=== PATIENT | male | born 1940 | race Caucasian/White ===

== ENCOUNTER → 2019-10-06 12:14 | Outpatient (CLI) | payer MEDICARE, OTHER, SELFPAY ==
--- NOTE | 2019-10-06 | DI.US.S_ITS ---
PROCEDURE: US PERIPH VENOUS LOW EXTREM BI INDICATIONS: LOCALIZED EDEMA TECHNIQUE: Real-time imaging, as well as color and pulse Doppler interrogation, were performed of the deep veins of both legs from the inguinal ligament to the popliteal fossa. COMPARISON: None. FINDINGS: Right: The common femoral, femoral and popliteal veins are normally compressible, and free of intraluminal thrombus. Color and pulse Doppler demonstrate normal phasic intravascular flow. There is normal augmentation response to distal compression maneuver. Left: The common femoral, femoral and popliteal veins are normally compressible, and free of intraluminal thrombus. Color and pulse Doppler demonstrate normal phasic intravascular flow. There is normal augmentation response to distal compression maneuver. Moderate edema. IMPRESSION: No deep venous thrombosis identified within either the left or right lower extremities. Dictated by: Cheikh PEREZ Interpreted: Buddy Rehman MD on 10/06/2019 at 13:38 Approved by: Buddy Rehman M.D. on 10/07/2019 at 12:06
== END ==
PROVIDERS: Family Provider Internal Medicine; PCP Internal Medicine; Referring Provider Internal Medicine; Visit Provider Internal Medicine
DX: R60.0 Localized edema (principal)
CPT/HCPCS: 93970

== ENCOUNTER → 2019-10-14 10:25 | Outpatient (CLI) | payer MEDICARE, OTHER, SELFPAY ==
[2019-10-14 11:46] LABS: Creatinine Urine Random 73.2 mg/dL; Protein (Total) Urine Random 8 mg/dL (0-12)
[2019-10-14 11:49] LABS: Alanine Aminotransferase 15 IU/L (<50); Albumin 3.3 g/dL (3.5-5.0); Albumin Globulin Ratio 1.5 (1.0-2.8); Alkaline Phosphatase 56 U/L (38-126); Aspartate Aminotransferase 23 IU/L (17-59); BUN Creatinine Ratio 17.9 (6-22); Bilirubin Total 0.4 mg/dL (0.2-1.3); Blood Urea Nitrogen 20 mg/dL (9-20); Carbon Dioxide 23 mmol/L (22-32); Chloride 102 mmol/L (98-107); Estimated Glomerular Filt Rate > 60.0 mL/min (>60); Globulin 2.2 g/dL (1.7-4.1); Glucose 103 mg/dL (80-110); HEMOLYSIS < 15 (0-50); Potassium 4.7 mmol/L (3.4-5.1); Sodium 131 mmol/L (137-145); Total Protein 5.5 g/dL (6.3-8.2)
[2019-10-14 11:55] LABS: Mean Corpuscular HGB Conc 28.1 % (30-36); Mean Corpuscular Hemoglobin 18.1 PG (26-34); Mean Corpuscular Volume 64.3 fL (80-100); Platelet Count 216 X10^3/uL (150-400); Red Blood Cell Count 2.26 X10^6/uL (4.5-5.9); White Blood Cell Count 5.7 X10^3/uL (4.5-11.0)
[2019-10-14 12:17] LABS: Add Manual Diff / Slide Review YES
[2019-10-14 12:20] LABS: Hematocrit 14.5 % (41-53); Hemoglobin 4.1 g/dL (13.5-17.5)
[2019-10-14 12:27] LABS: Neutrophils Absolute Manual 4446 /uL (3000-5900); Platelet Estimate Adequate on smear; Total Cells Counted 100
[2019-10-14 12:28] LABS: Anisocytosis 1+; Microcytosis 3+
[2019-10-14 12:29] LABS: Hypochromasia 3+; Poikilocytosis 2+
== END ==
PROVIDERS: Family Provider Internal Medicine; PCP Internal Medicine; Referring Provider Internal Medicine; Visit Provider Internal Medicine
DX: R60.0 Localized edema (principal)
CPT/HCPCS: 36415; 80053; 82570; 84156; 85025

== ENCOUNTER 2019-10-14 14:25 | Inpatient (IN) | payer MEDICARE, OTHER, SELFPAY ==
[2019-10-14] VITALS (11 sets, daily range): BP systolic 114–138; BP diastolic 48–64; PULSE 57–75; RESP 14–18; TEMP 36.2–37.6; O2SAT 95–100; BMI 21.1
--- NOTE | 2019-10-14 14:46 | PC.NURSE ---
Patient called by Dr Ventura for low HCT and HGB. Patient presents pale, reports some weakness and slight dizziness occasionally. Patient denies dark stools.
--- NOTE | 2019-10-14 15:14 | ED_ITS ---
HPI - Recheck/Abnormal Lab/Rx General Chief Complaint: Recheck/Abnormal Lab/Rx Stated Complaint: low hemoglobin/blood trans. Time Seen by Provider: 10/14/19 14:49 Source: patient and family Mode of arrival: Ambulatory Limitations: no limitations History of Present Illness HPI narrative: Patient here with son-in-law. Sent from Dr. Davis is office [facility], due to low hemoglobin. Patient has been feeling tired and fatigued for the past few days. Denies any black or bloody stools. No hematemesis or fluid loss. Is not on any blood thinners. Denies any chest pain. No palpitations no syncope. There is family history of colon cancer. Patient does not recall his last colonoscopy Related Data Allergies Allergy/AdvReac Type Severity Reaction Status Date / Time adhesive [ADHESIVE] Allergy Intermediate skin Unverified 06/25/17 11:54 redness, rash chocolate flavor AdvReac Intermediate mouth sores Unverified 06/25/17 11:54 [CHOCOLATE FLAVOR] Review of Systems Review of Systems Narrative: GENERAL: Denies chills, fever, sweats. Complains of weakness and fatigue HEENT: Denies sinus pain, ear pain, sore throat, difficulty swallowing, dizziness. RESPIRATORY: Denies dyspnea, cough, wheezing, hemoptysis, sputum. CARDIOVASCULAR: Denies chest pain, palpitations, orthopnea, edema, GASTROINTESTINAL: Denies nausea, vomiting, abdominal pain, diarrhea, constipation, melena. : Denies dysuria, frequency, incontinence, hematuria, urinary retention. MUSCULOSKELETAL: denies weakness, joint pain, or bony pain SKIN: Denies rash, skin lesions, or other NEUROLOGIC: Denies weakness, headache, numbness, change in speech, confusion, seizures, incoordination. PSYCHIATRIC: No concerning psychosocial issues. ROS Unobtainable: All systems reviewed & are unremarkable except as noted in HPI and below Patient History Social History household members: none Smoking Status: Never smoker Smoking Status: Never smoker alcohol intake frequency: 0-2 drinks per day Substance Use Type: does not use Exam Narrative Exam Narrative: GENERAL: patient appears stated age. Well-nourished, well- developed patient, in no distress, not toxic HEAD: Atraumatic. Normocephalic. EYES: Pupils equal round and reactive. Extraocular motions intact. No scleral ic terus. No injection or drainage. Pale conjunctiva ENT: Nose without bleeding, purulent drainage. Throat without erythema, tonsillar hypertrophy or exudate. Airway patent. NECK: Trachea midline. Non tender CARDIOVASCULAR: Regular rate and rhythm without murmurs, gallops, or rubs. RESPIRATORY: Clear to auscultation. Breath sounds equal bilaterally. No wheezes, rales, or rhonchi. GASTROINTESTINAL: Abdomen soft, non-tender, nondistended. Guaiac negative no black or bloody stool on glove EXTREMITIES: No edema or joint tenderness. BACK: Nontender without deformity or crepitance. No flank tenderness. NEURO: AOx3. SKIN: No rash or erythema of visible areas PSYCH: Not anxious, is cooperative Initial Vital Signs Initial Vital Signs: Vital Signs Temperature 99.7 F H 10/14/19 14:37 Pulse Rate 74 10/14/19 14:37 Respiratory Rate 18 10/14/19 14:37 Blood Pressure 128/58 L 10/14/19 14:37 Pulse Oximetry 100 10/14/19 14:37 Course Course Course Narrative: Will need admission for transfusion. Decision to Admit Date: 10/14/19 Decision to Admit time: 15:17 Orders Ordered: ED Orders 10/14/19 14:40 Complete Blood Count AUTO DIFF Stat Comprehensive Metabolic Panel Stat Packed Cells Stat Partial Thromboplastin Time Stat Prothrombin Time INR Stat Troponin & CK Cardiac Panel Stat Type and Screen Stat 10/14/19 15:11 EKG-12 Lead Stat Reevaluation(s) Reevaluation #1: No new issues at admit time Time: 15:17 Consultations Consultation #1: Spoke with hospitalist Dr. Corea will admit observation telemetry unit Time: 16:04 Consultation #2: Spoke with Dr. Nunez general surgery will see patient Time: 16:12 Vital Signs Vital signs: Vital Signs - 8 hr 10/14/19 14:37 10/14/19 15:09 Temperature 99.7 F H 99.1 F Pulse Rate 74 Respiratory Rate 18 Blood Pressure 128/58 L Pulse Oximetry 100 MDM - Recheck/Abnormal Lab/Rx Lab Data Result diagrams: 10/14/19 14:40 10/14/19 14:40 Labs: Lab Results 10/14/19 10/14/19 10/14/19 Range/Units 14:40 14:40 14:40 WBC 5.9 (4.5-11.0) X10^3/uL RBC 2.29 L (4.5-5.9) X10^6/uL Hgb 4.2 L* (13.5-17.5) g/dL Hct 14.7 L* (41-53) % MCV 64.3 L (80-100) fL MCH 18.5 L (26-34) PG MCHC 28.7 L (30-36) % RDW 18.9 H (11.6-14.8) % Plt Count 221 (150-400) X10^3/uL Neut % (Auto) 61.0 (50-75) % Lymph % (Auto) 28.7 (25-40) % [place] % (Auto) 7.0 (3-14) % Eos % (Auto) 2.5 (2-4) % Baso % (Auto) 0.8 (0-2) % Neut # (Auto) 3600 (1588-9335) /uL Lymph # (Auto) 1700 (3241-3540) /uL [place] # (Auto) 400 (0-900) /uL Eos # (Auto) 100 (0-450) /uL Baso # (Auto) 0 (0-100) /uL RBC Morphology See below Polychromasia 1+ H Hypochromasia 3+ H Microcytosis 3+ H PT 12.1 (10.1-12.7) SECONDS INR 1.0 (0.9-1.3) APTT 26 L (26.4-36.2) SECONDS Sodium (137-145) mmol/L Potassium (3.4-5.1) mmol/L Chloride (98-107) mmol/L Carbon Dioxide (22-32) mmol/L BUN (9-20) mg/dL Creatinine (0.66-1.25) mg/dL Estimated GFR (>60) mL/min BUN/Creatinine Ratio (6-22) Glucose (80-110) mg/dL Calcium (8.4-10.2) mg/dL Total Bilirubin (0.2-1.3) mg/dL AST (17-59) IU/L ALT (<50) IU/L Alkaline Phosphatase (38-126) U/L Total Creatine Kinase (55-170) U/L CK-MB (CK-2) (<2.37) ng/mL CK-MB (CK-2) Rel Index (1.5-5.0) % Troponin I (0.01-0.034) ng/mL Total Protein (6.3-8.2) g/dL Albumin (3.5-5.0) g/dL Globulin (1.7-4.1) g/dL Albumin/Globulin Ratio (1.0-2.8) COVID-19 PCR (Negative) Blood Type A Positive Antibody Screen Negative Crossmatch See Detail 10/14/19 10/14/19 Range/Units 14:40 15:16 WBC (4.5-11.0) X10^3/uL RBC (4.5-5.9) X10^6/uL Hgb (13.5-17.5) g/dL Hct (41-53) % MCV (80-100) fL MCH (26-34) PG MCHC (30-36) % RDW (11.6-14.8) % Plt Count (150-400) X10^3/uL Neut % (Auto) (50-75) % Lymph % (Auto) (25-40) % [place] % (Auto) (3-14) % Eos % (Auto) (2-4) % Baso % (Auto) (0-2) % Neut # (Auto) (3462-1094) /uL Lymph # (Auto) (6020-0247) /uL [place] # (Auto) (0-900) /uL Eos # (Auto) (0-450) /uL Baso # (Auto) (0-100) /uL RBC Morphology Polychromasia Hypochromasia Microcytosis PT (10.1-12.7) SECONDS INR (0.9-1.3) APTT (26.4-36.2) SECONDS Sodium 132 L (137-145) mmol/L Potassium 4.5 (3.4-5.1) mmol/L Chloride 102 (98-107) mmol/L Carbon Dioxide 24 (22-32) mmol/L BUN 22 H (9-20) mg/dL Creatinine 1.21 (0.66-1.25) mg/dL Estimated GFR 57.7 L (>60) mL/min BUN/Creatinine Ratio 18.2 (6-22) Glucose 119 H (80-110) mg/dL Calcium 8.8 (8.4-10.2) mg/dL Total Bilirubin 0.4 (0.2-1.3) mg/dL AST 25 (17-59) IU/L ALT 16 (<50) IU/L Alkaline Phosphatase 54 (38-126) U/L Total Creatine Kinase 198 H (55-170) U/L CK-MB (CK-2) 3.32 H (<2.37) ng/mL CK-MB (CK-2) Rel Index 1.7 (1.5-5.0) % Troponin I < 0.012 (0.01-0.034) ng/mL Total Protein 5.8 L (6.3-8.2) g/dL Albumin 3.6 (3.5-5.0) g/dL Globulin 2.2 (1.7-4.1) g/dL Albumin/Globulin Ratio 1.6 (1.0-2.8) COVID-19 PCR Negative (Negative) Blood Type Antibody Screen Crossmatch ECG Data Attestation: I personally reviewed and interpreted this ECG as follows: Interpretation: EKG normal sinus rhythm normal EKG rate [address] elevation or depression Discharge Plan Departure Patient Disposition: Admitted as Observation Clinical Impression: Anemia Qualifiers: Anemia type: other cause Other causes of anemia: other cause, not classified Qualified Code(s): D64.89 - Other specified anemias Discharge Date/Time: 10/14/19 16:24 Referrals: Aj Davis MD [Primary Care Provider] - Admit Date/Time: 10/14/19 16:05 Admit Provider: Rosalind Fraser
[2019-10-14 15:21] LABS: HEMOLYSIS < 15 (0-50)
[2019-10-14 15:23] LABS: Prothrombin Time 12.1 SECONDS (10.1-12.7)
[2019-10-14 15:25] LABS: PTT Partial Thromboplastin Tim 26 SECONDS (26.4-36.2)
[2019-10-14 15:26] LABS: Alanine Aminotransferase 16 IU/L (<50); Albumin 3.6 g/dL (3.5-5.0); Albumin Globulin Ratio 1.6 (1.0-2.8); Alkaline Phosphatase 54 U/L (38-126); Aspartate Aminotransferase 25 IU/L (17-59); BUN Creatinine Ratio 18.2 (6-22); Bilirubin Total 0.4 mg/dL (0.2-1.3); Blood Urea Nitrogen 22 mg/dL (9-20); Calcium 8.8 mg/dL (8.4-10.2); Carbon Dioxide 24 mmol/L (22-32); Chloride 102 mmol/L (98-107); Creatine Kinase 198 U/L (55-170); Estimated Glomerular Filt Rate 57.7 mL/min (>60); Globulin 2.2 g/dL (1.7-4.1); Glucose 119 mg/dL (80-110); Potassium 4.5 mmol/L (3.4-5.1); Sodium 132 mmol/L (137-145); Total Protein 5.8 g/dL (6.3-8.2)
[2019-10-14 15:33] LABS: Add Manual Diff / Slide Review NO; Basophils Absolute Auto 0 /uL (0-100); Basophils Percent Auto 0.8 % (0-2); Eosinophils Absolute Auto 100 /uL (0-450); Eosinophils Percent Auto 2.5 % (2-4); Lymphocytes Absolute Auto 1700 /uL (1100-4500); Lymphocytes Percent Auto 28.7 % (25-40); Mean Corpuscular HGB Conc 28.7 % (30-36); Mean Corpuscular Hemoglobin 18.5 PG (26-34); Mean Corpuscular Volume 64.3 fL (80-100); Monocytes Absolute Auto 400 /uL (0-900); Neutrophils Absolute Auto 3600 /uL (1500-7000); Platelet Count 221 X10^3/uL (150-400); Red Blood Cell Count 2.29 X10^6/uL (4.5-5.9); Red Cell Distribution Width 18.9 % (11.6-14.8); White Blood Cell Count 5.9 X10^3/uL (4.5-11.0)
[2019-10-14 15:37] LABS: Hematocrit 14.7 % (41-53); Hemoglobin 4.2 g/dL (13.5-17.5)
[2019-10-14 15:51] LABS: CKMB % Relative Index 1.7 % (1.5-5.0); Creatine Kinase MB 3.32 ng/mL (<2.37); Troponin I < 0.012 ng/mL (0.01-0.034)
[2019-10-14 16:01] LABS: Polychromasia 1+
[2019-10-14 16:02] LABS: Hypochromasia 3+; Microcytosis 3+
[2019-10-14 16:30] LABS: COVID19 -Nasal RAPID Negative (Negative)
--- NOTE | 2019-10-14 19:26 | PM.CN ---
History of Present Illness Consult details Date Patient Seen: 10/14/19 Time Patient Seen: 19:26 Chief complaint: low hemoglobin/blood trans. Narrative: This 79-year-old male seen in consultation for symptomatic anemia. Over the past week the patient has become increasingly fatigued and short of breath. He presented to the emergency room today was found to have microcytic anemia, hemoglobin of 4.2, WBC 6, platelets 221, INR 1.0. No history of anemia or malignancy. He takes aspirin and daily but denies abdominal pain hematemesis melanotic stools bright red blood per rectum. He he notes unintentional weight loss over the past several months. Last colonoscopy was approximately 10 years ago and normal at that time. No personal or family history of intestinal malignancy. No significant past medical or surgical history. Meds Home Medications and Allergies Allergies Allergy/AdvReac Type Severity Reaction Status Date / Time adhesive [ADHESIVE] Allergy Intermediate skin Unverified 06/25/17 11:54 redness, rash chocolate flavor AdvReac Intermediate mouth sores Unverified 06/25/17 11:54 [CHOCOLATE FLAVOR] Review of Systems Review of Systems Narrative: A 10 point review of systems is negative except as noted in the HPI Exam Vital Signs (past 8 hours): - 10/14/19 14:37 10/14/19 15:09 10/14/19 17:10 Temperature 99.7 F H 99.1 F 98.0 F Pulse Rate 74 64 Respiratory Rate 18 18 Blood Pressure 128/58 L 114/49 L Pulse Oximetry 100 10/14/19 17:26 10/14/19 17:42 Temperature 98.1 F 98.0 F Pulse Rate 57 L 66 Respiratory Rate 16 18 Blood Pressure 119/53 L 114/49 L Pulse Oximetry 100 Oxygen Delivery Method Room Air Narrative Exam Narrative: General-no acute distress, thin elderly male HEENT-moist mucous membranes, no scleral icterus Neck-supple, no lymphadenopathy Chest- non labored respirations, clear to auscultation bilaterally Cardiac-regular rate no peripheral edema Abdomen-soft, nontender, non distended Extremities-warm, well perfused Neurological-alert and oriented, no focal deficits Objective Labs Result Diagrams: 10/14/19 14:40 10/14/19 14:40 Labs: Laboratory Results - last 24 hr 10/14/19 10/14/19 10/14/19 14:40 14:40 14:40 WBC 5.9 RBC 2.29 L Hgb 4.2 L* Hct 14.7 L* MCV 64.3 L MCH 18.5 L MCHC 28.7 L RDW 18.9 H Plt Count 221 Neut % (Auto) 61.0 Lymph % (Auto) 28.7 [place] % (Auto) 7.0 Eos % (Auto) 2.5 Baso % (Auto) 0.8 Neut # (Auto) 3600 Lymph # (Auto) 1700 [place] # (Auto) 400 Eos # (Auto) 100 Baso # (Auto) 0 RBC Morphology See below Polychromasia 1+ H Hypochromasia 3+ H Microcytosis 3+ H PT 12.1 INR 1.0 APTT 26 L Sodium Potassium Chloride Carbon Dioxide BUN Creatinine Estimated GFR BUN/Creatinine Ratio Glucose Calcium Total Bilirubin AST ALT Alkaline Phosphatase Total Creatine Kinase CK-MB (CK-2) CK-MB (CK-2) Rel Index Troponin I Total Protein Albumin Globulin Albumin/Globulin Ratio COVID-19 PCR Blood Type A Positive Antibody Screen Negative Crossmatch See Detail 10/14/19 10/14/19 14:40 15:16 WBC RBC Hgb Hct MCV MCH MCHC RDW Plt Count Neut % (Auto) Lymph % (Auto) [place] % (Auto) Eos % (Auto) Baso % (Auto) Neut # (Auto) Lymph # (Auto) [place] # (Auto) Eos # (Auto) Baso # (Auto) RBC Morphology Polychromasia Hypochromasia Microcytosis PT INR APTT Sodium 132 L Potassium 4.5 Chloride 102 Carbon Dioxide 24 BUN 22 H Creatinine 1.21 Estimated GFR 57.7 L BUN/Creatinine Ratio 18.2 Glucose 119 H Calcium 8.8 Total Bilirubin 0.4 AST 25 ALT 16 Alkaline Phosphatase 54 Total Creatine Kinase 198 H CK-MB (CK-2) 3.32 H CK-MB (CK-2) Rel Index 1.7 Troponin I < 0.012 Total Protein 5.8 L Albumin 3.6 Globulin 2.2 Albumin/Globulin Ratio 1.6 COVID-19 PCR Negative Blood Type Antibody Screen Crossmatch Assessment & Plan Assessment and plan (1) Anemia: Qualifiers: Anemia type: other cause Other causes of anemia: other cause, not classified Qualified Code(s): D64.89 - Other specified anemias Status: Acute Assessment & Plan narrative: 79-year-old male admitted to the medical service with symptomatic microcytic anemia, initial hemoglobin 4.2. He takes aspirin daily has some unintentional weight loss. He is currently receiving blood transfusion. It is reasonable to perform an esophagoduodenoscopy for diagnostic purpose see may have peptic ulcer, gastritis/esophagitis or malignancy and he may require a future colonoscopy as well. I discussed this with the patient and we discussed the procedural risks of EGD including bleeding infection intestinal perforation missed diagnosis need for further procedure. His his questions have been answered to his agreement with this plan -NPO after midnight -plan for EGD 10/14
--- NOTE | 2019-10-14 20:37 | P.HP_ITS ---
History of Present Illness <Rosalind Fraser DO - Last Filed: 10/15/19 14:38> History of Present Illness Date Patient Seen: 10/14/19 Chief complaint: low hemoglobin/blood trans. Narrative: Lalit Wright is an 79-year-old male with a past medical history significant for hypertension, hyperlipidemia, and colon polyps who presented to the ED at the instruction of his PCP for severe and mildly symptomatic anemia. The patient is a very poor historian and likely has mild cognitive impairment versus mild dementia. The patient reports that he has had increasing fatigue and weakness likely over the last several weeks but especially over the last several days. The patient was found to be severely anemic with a hemoglobin of 4.1 in PCP outpatient clinic and he was instructed to go to the emergency department. He has no history of anemia as far as he knows with the last documented hemoglobin and hematocrit was 15.7 and 47.5, respectively in 2014. He takes a baby aspirin daily. He denies any other NSAID use. He denies hemoptysis, hematuria, hematochezia or melena. Stool guaiac negative in ED. He denies any shortness of breath, lightheadedness or dizziness, presyncope or syncopal episodes, palpitations or chest pain. The patient has a history of colon polyps and reports that he is likely overdue for colonoscopy but was not going to obtain due to his age and previous discussion with PCP. He has a family history of a mother that of metastatic colon cancer. Patient endorses unintentional weight loss of unknown amount but has noticed his clothes do not fit well and he has changed stool pattern with intermittent small caliber of stool. He denies night sweats or abdominal pain. Plan for observation and workup of anemia which is likely related to GI source. PCP Dr. Davis Patient History <Rosalind Fraser DO - Last Filed: 10/15/19 14:38> Medical History Colon polyps (Acute) Hydrocele, left (Acute) Hyperlipidemia (Acute) Hypertension (Acute) Lumbar radiculopathy (Acute) Surgical History H/O colonoscopy (Acute) History of cholecystectomy (Acute) History of lumbar fusion (Acute) History of tonsillectomy (Acute) S/P repair of hydrocele (Acute) Family & Social History Family History (Updated 10/14/19 @ 23:45 by Rosalind Fraser DO) Mother Metastatic colon cancer to liver Father Alcoholism Social History: household members none Prior Living Arrangements House Safety & Behavioral: Feels Safe in Current Yes Environment Been Physically Hurt or No Threatened By a Person Suicidal Ideation Description None Suicide Plan Description No Plan Tobacco & Substance use: Smoking Status Never smoker alcohol intake frequency None Substance Use Type Does not use The patient is for 14 years now and was for 41 years. He has 1 adult daughter who is healthy. He denies history of alcohol, tobacco or recreational drug use. Meds <Rosalind Fraser DO - Last Filed: 10/15/19 14:38> Home Medications and Allergies Home Medications Medication Instructions Recorded Confirmed Type aspirin 81 mg PO DAILY 10/14/19 10/14/19 History lisinopril 5 mg PO DAILY 10/14/19 10/14/19 History simvastatin 20 mg PO BEDTIME 10/14/19 10/14/19 History oxycodone 5 mg PO DAILY PRN 10/15/19 10/15/19 History Allergies Allergy/AdvReac Type Severity Reaction Status Date / Time adhesive [ADHESIVE] Allergy Intermediate skin Verified 10/15/19 09:23 redness, rash chocolate flavor AdvReac Intermediate mouth sores Verified 10/15/19 09:23 [CHOCOLATE FLAVOR] Review of Systems <Rosalind Fraser DO - Last Filed: 10/15/19 14:38> Review of Systems Narrative: A 10 system comprehensive review of systems was conducted with the patient and found to be negative except as above in the History of Present Illness. Exam <Rosalind Fraser DO - Last Filed: 10/15/19 14:38> Vital Signs (past 8 hours): - 10/14/19 14:37 10/14/19 15:09 10/14/19 17:10 Temperature 99.7 F H 99.1 F 98.0 F Pulse Rate 74 64 Respiratory Rate 18 18 Blood Pressure 128/58 L 114/49 L Pulse Oximetry 100 10/14/19 17:26 10/14/19 17:42 10/14/19 20:05 Temperature 98.1 F 98.0 F 98.4 F Pulse Rate 57 L 66 75 Respiratory Rate 16 18 18 Blood Pressure 119/53 L 114/49 L 138/64 Pulse Oximetry 100 Oxygen Delivery Method Room Air Narrative Exam Narrative: General: Elderly thin and frail-appearing male lying in bed and in no acute distress, well-developed, well-nourished, mild cognitive impairment otherwise appropriately interactive. HEENT: Normocephalic, atraumatic. External ears without defect. Pupils equal, round, and reactive to light. Anicteric sclerae, moist conjunctivae, and no lid lag. Oropharynx free of erythema and cobble stoning with moist mucosa. Bitemporal and full body muscle wasting. Neck: Supple with full range of motion. No jugular venous distension. No lymphadenopathy or thyromegaly. Cardiovascular: Regular rate and rhythm without murmurs, rubs, or gallops appreciated. Pulmonary: Clear to auscultation bilaterally without crackles, wheezes, or rhonchi. Normal respiratory effort with no use of accessory muscles. Abdomen: Soft, scaphoid, bowel sounds present, nontender, nondistended. No hepatosplenomegaly or masses appreciated. Extremities: No clubbing, cyanosis, or edema. Stasis dermatitis of bilateral lower extremities. Skin: Normal temperature, turgor, and texture; no ulcers, or subcutaneous nodul es appreciated. Neurological: Cranial nerves grossly intact. Psychiatric: Normal mood and affect. Alert and oriented to person and place. Poor insight. Mild cognitive impairment versus mild dementia with short-term memory recall deficit. Objective <Rosalind Adamaris Bria, DO - Last Filed: 10/15/19 14:38> Labs Result Diagrams: 10/15/19 05:40 10/15/19 05:40 Labs: Laboratory Results - last 24 hr 10/14/19 10/14/19 10/14/19 14:40 14:40 14:40 WBC 5.9 RBC 2.29 L Hgb 4.2 L* Hct 14.7 L* MCV 64.3 L MCH 18.5 L MCHC 28.7 L RDW 18.9 H Plt Count 221 Neut % (Auto) 61.0 Lymph % (Auto) 28.7 [place] % (Auto) 7.0 Eos % (Auto) 2.5 Baso % (Auto) 0.8 Neut # (Auto) 3600 Lymph # (Auto) 1700 [place] # (Auto) 400 Eos # (Auto) 100 Baso # (Auto) 0 RBC Morphology See below Polychromasia 1+ H Hypochromasia 3+ H Microcytosis 3+ H PT 12.1 INR 1.0 APTT 26 L Sodium Potassium Chloride Carbon Dioxide BUN Creatinine Estimated GFR BUN/Creatinine Ratio Glucose Calcium Total Bilirubin AST ALT Alkaline Phosphatase Total Creatine Kinase CK-MB (CK-2) CK-MB (CK-2) Rel Index Troponin I Total Protein Albumin Globulin Albumin/Globulin Ratio COVID-19 PCR Blood Type A Positive Antibody Screen Negative Crossmatch See Detail 10/14/19 10/14/19 14:40 15:16 WBC RBC Hgb Hct MCV MCH MCHC RDW Plt Count Neut % (Auto) Lymph % (Auto) [place] % (Auto) Eos % (Auto) Baso % (Auto) Neut # (Auto) Lymph # (Auto) [place] # (Auto) Eos # (Auto) Baso # (Auto) RBC Morphology Polychromasia Hypochromasia Microcytosis PT INR APTT Sodium 132 L Potassium 4.5 Chloride 102 Carbon Dioxide 24 BUN 22 H Creatinine 1.21 Estimated GFR 57.7 L BUN/Creatinine Ratio 18.2 Glucose 119 H Calcium 8.8 Total Bilirubin 0.4 AST 25 ALT 16 Alkaline Phosphatase 54 Total Creatine Kinase 198 H CK-MB (CK-2) 3.32 H CK-MB (CK-2) Rel Index 1.7 Troponin I < 0.012 Total Protein 5.8 L Albumin 3.6 Globulin 2.2 Albumin/Globulin Ratio 1.6 COVID-19 PCR Negative Blood Type Antibody Screen Crossmatch Assessment & Plan <Rosalind Fraser DO - Last Filed: 10/15/19 14:38> Assessment & Plan narrative: Lalit Wright is an 79-year-old male with a past medical history significant for hypertension, hyperlipidemia, and colon polyps who presented to the ED at the instruction of his PCP for severe and mildly symptomatic anemia. 1. Symptomatic anemia likely secondary to GI source, unclear acuity, present on admission. Active. -Patient presented with mild fatigue and weakness over several weeks but especially over last 3 days. Patient endorses change in stool pattern with intermittent small caliber stools. Patient has history of colon polyps and is overdue for colonoscopy. Significant family history of mother who had metastatic colon cancer. -Initial hemoglobin 4.1 with MCV 64.3. Received 2 units PRBC. Plan to check another H&H and transfuse likely 1-2 units of PRBC for goal hemoglobin > 7.0. -Stool guaiac negative in ED. -Ordered anemia workup including: Iron profile with saturation, ferritin, reticulocyte count, B12 and folate, pending. -Started Protonix 40 mg IV twice daily. -Consulted general surgery, Dr. Nunez, who plans to perform EGD tomorrow and probable colonoscopy in the next several days after bowel prep has been performed. NPO midnight. 2. Unintentional weight loss with likely protein calorie malnutrition, likely acute on chronic, present on admission. Active. -BMI 20.7. -Consulted dietitian and we appreciate her time and recommendations, pending. 3. Hypertension, chronic, present on admission. Stable. -Continue home lisinopril 5 mg daily if BP allows. 4. Hyperlipidemia, chronic, present on admission. Stable. -Continue home simvastatin 20 mg daily at bedtime. Code status: Full code VTE prophylaxis: SCDs Patient is admitted under observation status with expected length of stay less than 2 midnights due to severity of presenting symptoms, risk of adverse event, and complexity of treatment plan. Quality <Rosalind Fraser DO - Last Filed: 10/15/19 14:38> VTE Deep Vein Thrombosis/Pulmonary Embolism Present on Admission: No
[2019-10-14 21:08] LABS: Hematocrit 18.8 % (41-53)
[2019-10-14 21:10] LABS: Hemoglobin 5.5 g/dL (13.5-17.5)
[2019-10-14] MEDS: PANTOPRAZOLE 40 MG TABLET PO (21:43)
--- NOTE | 2019-10-14 22:49 | PC.NURSE ---
Admit/Evening Shift Note- Patient arrived to room from ER via stretche. Patiet able to ambulate with cane from stretcher to bed to bathroom and back with steady gait noted.admission questions done, medications reviewed, physical assessment and skin check done. Oriented patient to bed and bed controls,room,bathroom, lights,phone, menu, and call paez/tv remote. Patient forgetfull and will need reminding. safety measures in place.bed alarm activated. call paez and phone within reach. will continue to monitor.
[2019-10-15] VITALS (26 sets, daily range): BP systolic 82–111; BP diastolic 34–51; PULSE 42–61; RESP 12–27; TEMP 36.1–37.3; O2SAT 96–100; BMI 20.3
--- NOTE | 2019-10-15 | PATH_ITS ---
[facility] Accession Number: [id number] . 01 Material submitted: . PART A: duodenum - DUODENUM PART B: stomach - STOMACH PART C: gastrointestinal site - GASTRIC POLYP PART D: body - FLAT POLYP PART E: esophagus - DISTAL ESOPHAGUS . 01 Clinical history: . LOW HEMOGLOBIN/BLOOD TRANS . 02 Diagnosis: A. Duodenum, Biopsy: Duodenal mucosa with gastric surface foveolar metaplasia. Negative for intraepithelial lymphocytosis or villous blunting. Negative for dysplasia and malignancy. . B. Stomach, Biopsy: Antral mucosa with no diagnostic abnormality. Negative for Helicobacter by immunohistochemistry. Negative for intestinal metaplasia. Negative for dysplasia and malignancy. . C. Stomach, Polyp, Biopsy: Fundic gland polyp. No evidence of Helicobacter on H/E stain. Negative for intestinal metaplasia. Negative for dysplasia and malignancy. . D. Flat Polyp, Biopsy: Favor gastric hyperplastic polyp. Negative for intestinal metaplasia by alcian blue stain. Negative for dysplasia and malignancy. . E. Distal Esophagus, Biopsy: Squamocolumnar junctional mucosa with mild chronic inflammation. Negative for intestinal metaplasia by alcian blue stain. Negative for dysplasia and malignancy. [facility] 10/19/2019 1414 Local . 02 Electronically signed: . Rachna Ybarra MD, Pathologist NPI- [id number] . 01 Gross description: . Part A: DUODENUM: Received in formalin are 2 fragment(s) of roche, soft tissue measuring 0.4 x 0.2 x 0.1 cm to 0.3 x 0.2 x 0.1 cm submitted entirely in 1 cassette(s) Part B: STOMACH: Received in formalin is 1 fragment(s) of roche, soft tissue measuring 0.4 x 0.3 x 0.2 cm submitted entirely in 1 cassette(s) Part C: GASTRIC POLYP: Received in formalin are 2 fragment(s) of roche, soft tissue measuring 0.6 x 0.3 x 0.3 cm to 0.3 x 0.3 x 0.1 cm submitted entirely in 1 cassette(s) Part D: FLAT POLYP: Received in formalin are 2 fragment(s) of roche, soft tissue measuring 0.4 x 0.4 x 0.1 cm to 0.3 x 0.2 x 0.1 cm submitted entirely in 1 cassette(s) Part E: DISTAL ESOPHAGUS: Received in formalin are 2 fragment(s) of roche, soft tissue measuring 0.4 x 0.2 x 0.1 cm to 0.3 x 0.1 x 0.1 cm submitted entirely in 1 cassette(s) /Q 10/16/2019 0834 Local . 02 Microscopic: . B. An immunohistochemical stain was performed to evaluate for Helicobacter organisms and is negative. The control stain showed appropriate reactivity. . D-E: Alcian blue stains were performed on blocks D and E in order to evaluate for intestinal metaplasia and are both negative. The control stain showed appropriate reactivity. . * This test was developed and its performance characteristics determined by [employer]. It has not been cleared or approved by the U.S. Food and Drug Administration. The FDA has determined that such clearance or approval is not necessary. This test is used for clinical purposes. It should not be regarded as investigational or for research. . 02 Pathologist provided ICD-10: D50.9 . 02 CPT . 410557, 685941, 204649, 852954, 968089, 116828, 837946, K38091 Performed at: 01 [facility] [address], [place], [place] [id number] MD Heri Curry MD Phone: [phone] Performed at: 02 [facility] [address] [place], [place] [id number] MD Rachna Ybarra MD Phone: [phone]
--- NOTE | 2019-10-15 01:52 | TAR.TRANSNT ---
Transfusion [id number] [facility] 2340 10/14/19. Post transfusion VS.
--- NOTE | 2019-10-15 03:54 | PC.NURSE ---
Completion of verification of [facility] # [id number] completed in TAR with Christiane Price RN. This unit initiated on previous shift @2110 by Sil Parsons RN and completed by Christiane Price RN at 2340.
[2019-10-15 06:05] LABS: Hemoglobin 7.4 g/dL (13.5-17.5); Mean Corpuscular HGB Conc 31.3 % (30-36); Mean Corpuscular Hemoglobin 22.7 PG (26-34); Mean Corpuscular Volume 72.6 fL (80-100); Platelet Count 161 X10^3/uL (150-400); Red Blood Cell Count 3.26 X10^6/uL (4.5-5.9); Red Cell Distribution Width 25.6 % (11.6-14.8); White Blood Cell Count 6.5 X10^3/uL (4.5-11.0)
[2019-10-15 06:08] LABS: Add Manual Diff / Slide Review YES; Hematocrit 23.6 % (41-53)
[2019-10-15 06:11] LABS: BUN Creatinine Ratio 17.1 (6-22); Blood Urea Nitrogen 18 mg/dL (9-20); Calcium 8.7 mg/dL (8.4-10.2); Carbon Dioxide 22 mmol/L (22-32); Chloride 106 mmol/L (98-107); Estimated Glomerular Filt Rate > 60.0 mL/min (>60); Glucose 75 mg/dL (80-110); HEMOLYSIS < 15 (0-50); Magnesium 2.1 mg/dL (1.6-2.3); Potassium 4.1 mmol/L (3.4-5.1); Sodium 133 mmol/L (137-145)
[2019-10-15 07:19] LABS: Neutrophils Absolute Manual 5200 /uL (3000-5900); Nucleated Red Blood Cells 1 #/Diff; Total Cells Counted 100
[2019-10-15 07:20] LABS: Anisocytosis 2+; Hypochromasia 2+; Poikilocytosis 1+; Target Cells 1+
[2019-10-15] MEDS: PANTOPRAZOLE 40 MG VIAL IV ×2 (08:01→21:11)
[2019-10-15] MEDS: SODIUM CHLORIDE 0.9% FLUSH 10 ML IV ×3 (08:01→11:02)
--- NOTE | 2019-10-15 08:28 | PC.NURSE ---
Day Shift- Pt NPO for EGD procedure today. Dr. Nunez in pt's room, consent obtained for EGD. Requested IVF if pt NPO. New order to start NS @ 75mls/hr. Dr. 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 Spoke with Dr. Fraser at 0835, aware of above. Lab Glucose 75, check finger stick blood glucose X1, start D5NS @ 75mls/hr. Dr. Fraser aware of pt's c/o restless legs and chronic low back pain, pt states he takes Oxycodone at home. No other PRN orders at this time.
[2019-10-15] MEDS: DEXTROSE 5%-0.9% NS 1,000 ML 75 ML IV (08:45)
[2019-10-15 08:54] LABS: HEMOLYSIS < 15 (0-50); Iron 186 ug/dL (49-181)
[2019-10-15 09:04] LABS: Percent Iron Saturation 49 % (20-50); Total Iron Binding Capacity 378 ug/dL (261-462); Transferrin 277 mg/dL (206-381)
[2019-10-15] MEDS: SODIUM CHLORIDE 0.9% 1,000 ML 200 ML IV (09:23)
--- NOTE | 2019-10-15 09:44 | PM.PREOP ---
Pre-operative Note COVID-19 COVID-19 status: Negative Result date/Date tested (Pos, Neg/Pending): 10/14/19 Interval Note History & Physical reviewed/Exam performed by Physician: Yes Changes to H&P: No ASA Class (for procedural sedation): IV (Anemia of unknown cause, with present hemoglobin of 4)
--- NOTE | 2019-10-15 09:46 | P.OP.ENDO_ITS ---
Operative Date/Time/Diagnoses Date of procedure: 10/15/19 Time of procedure: 09:46 Pre-op diagnosis: Anemia of unknown cause, with presenting hgb of 4 and c/o abdominal pain Post-op diagnosis: other (Duodenal petechia, consistent with duodenitis, gastric petechia consistent with gastritis, raised and flat polyps in the stomach, with no active bleeding, 1-2 cm tongues of salmon-colored mucosa consistent with Yung's esophagus in the distal esophagus) Procedure & Clinicians Study performed: Esophagogastroduodenoscopy Procedural sedation by the endoscopy Snare polypectomy x2 Cold forceps biopsy of duodenum, stomach mucosa, flap gastric polyps, and distal esophagus Same procedure as scheduled: Yes Indications: 79 yo man with no significant medical or surgical history, presenting to the ER with hgb of 4 of unknown cause and abdominal pain. EGD was recommended by the hospitalist. He has been transfused up to 7.4 over night. Surgeon: Loren Rico Procedure Notes SCOAP/Timeout: Performed Procedure in detail: The patient was brought to the room and placed in left lateral decubitus position with all bony prominences padded. A bite block was positioned in the patient's mouth to protect the lips, teeth, and tongue for the procedure. A time-out was performed and then the patient was given procedural sedation starting with 1 mg of Versed and 50 mcg of fentanyl. Vitals were monitored throughout the procedure and remained stable. Once adequately sedated, the procedure was begun. The lubricated gastroscope was passed through the bite block and across the tongue and into the esophagus without incident. A tubular view of the esophagus was maintained as the scope was advanced through the esophagus and into the stomach. The scope was advanced through the stomach and to the pylorus. The scope was gently popped through the pylorus and into the duodenal bulb. The scope was flexed and advanced into the second and third portions of the duodenum. The duodenum and duodenal bulb appeared to contain so me mild to moderate duodenitis with petechia present, this was biopsies. The scope was withdrawn into the stomach. The stomach appeared to have some mild gastritis, with petechia present, this was biopsied. There were many raised and flap polyps in the gastric body. These were biopsied and sent separately for pathology. The raised polyps were removed with cold snare, and the flap polyps were biopsied with cold forceps. All the polyps were 1/2 to 1 cm in size. The scope was then retroflexed and the gastric cardia was examined. The hiatus [appeared normal], with no hiatal hernia. The scope was then straightened, and withdrawn into the esophagus. There were 1-2 cm tongues of salmon-colored mucosa coming up into the distal esophagus. Was no sign of bleeding here, but this was biopsied. The esophagus appeared otherwise normal. The scope was then withdrawn through the esophagus with a tubular view. The scope was then withdrawn from the patient the procedure was concluded. The patient tolerated the procedure well and was transferred to the PACU in stable condition. Sedation minutes: 17 Findings: other findings (Duodenal petechia, consistent with duodenitis, gastric petechia consistent with gastritis, raised and flat polyps in the stomach, with no active bleeding, 1-2 cm tongues of salmon-colored mucosa consistent with Yung's esophagus in the distal esophagus) Specimen(s): other (Biopsies of duodenal and gastric mucosa, gastric polyps flat and raised, distal esophagus) Complications: none Impression: Potential source of anemia is most likely the duodenitis and duodenal petechia Post-procedure Plan for aftercare: Continue PPI, follow hemoglobin, consider colonoscopy and evaluation of other sources if anemia persists Follow up: as needed Disposition: PACU
[2019-10-15] MEDS: fentaNYL 250 MCG/5 ML INJ IV (10:32)
[2019-10-15] MEDS: MIDAZOLAM 5 MG/5 ML VIAL IV (10:32)
[2019-10-15] MEDS: LIDOCAINE 4% SOLN 50 ML 20 ML TOP (10:35)
--- NOTE | 2019-10-15 10:50 | SUR.PHASEI ---
Report called to Hellen
--- NOTE | 2019-10-15 11:09 | SUR.PHASEI ---
Patient transferred to the floor. VS stable. Report given to Hellen. IV saline locked.
--- NOTE | 2019-10-15 11:09 | PC.NURSE ---
Addendum entered by Hellen Hanna R.N. 10/15/19 12:15: pt tolerating clearl liquids without issue. Has had water and chicken broth. Pt wants to have a cheeseburger, reminded and educated pt on clear liquid diet ordered at this time and to intake slowly to prevent GI upset. Pt agreeable but is forgetful. Pt stated falling asleep with the chicken broth in my hand. Fluid was luke-warm, no skin issue to abd or chest where broth was spilled, gown changed. Original Note: Shift- Pt left for EGD via bed at 0901. Pt's personal belongings of wallet with bernabe and blank checks, golod colored ramin and gold colored ring, and care acevedo set sent to unit safe while pt in procedure. Pt aware and signed appropriate forms. Report rec'd from CYNTHIA Ruano in PACU at 1049. Pt arrived back to unit room 207 at via bed. Re-oriented to call light, within reach. Pt states feeling hungry, water and chicken broth given, pt instructed repeatedly to go slow with fluids. States chronic back pain 2-3/10, states feeling comfortable. Abd slight distended, slight tenderness to upper abd. Denies nausea. IVF restarted per order. O2 sat 98% on RA. Will monitor.
--- NOTE | 2019-10-15 11:18 | CM.DANOTE ---
Addendum entered by Nola Valdivia LPN 10/15/19 11:41: Met now with pt. He appears groggy after his procedure but is able to have brief discussion. Pt confirms he does live alone and drives though only to the grocery store these days. He uses no assistive device. My furniture is close enough to hold on to if I feel dizzy.. Pt describes a supportive daughter Ghislaine Vergara: [phone] and her James who live in [place]. He has 2 adult grandchildren, both of whom are and live in [place]. OF NOTE: the d/c order has now been cancelled. P: DCP team to follow as POC unfolds to assist with d/c needs as these are clearer. Original Note: Discharge Planning/Care Management DCP: assessment: case received, EMR reviewed. DC order noted to be in place by Dr. Fraser but not finalized. Went to room to meet with pt but found that he was off of the unit for EGD. PT is an 79 year old male who admitted to care of hospitalist team yesterday late afternoon. Consulting: [facility]. PCP: Dr. Rika Davis Payer: Medicare and a commercial insurance Diagnosis and treatment plan appear to be in process at this time. Will plan to check in with pt when he arrives back from his procedure. CM Discharge Assessment Start: 10/15/19 11:17 Freq: Status: Active Protocol: Document 10/15/19 11:17 ITV (Rec: 10/15/19 11:18 ITV [id number]) Discharge Planning Assessment Advance Directives? No History Provided By Medical Record Has Patient been admitted in last 30 No days? Prior Living Arrangements House Household Members none Is patient alert and oriented? Yes Review Status In Process
--- NOTE | 2019-10-15 14:38 | PM.PN.1 ---
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 Patient is resting in bed and recovering postoperatively from endoscopy. The patient appears mildly uncomfortable and endorses his usual chronic low lumbar back pain with radiculopathy/neuropathy. He has no other complaints and denies headache, chest pain, shortness of breath, abdominal pain, nausea, vomiting, fever, chills, dysuria, diarrhea or constipation. Discussed EGD findings with patient and the plan for colonoscopy tomorrow. Plan to start bowel prep later this afternoon/evening. Patient is voiding and eliminating without difficulty. Patient is up ambulating with assistance. Exam Vital Signs (past 8 hours): - 10/15/19 07:45 10/15/19 07:59 10/15/19 08:00 Temperature 98.2 F Pulse Rate 48 L Respiratory Rate 17 Blood Pressure 107/50 L 104/48 L Pulse Oximetry 96 96 10/15/19 09:16 10/15/19 10:21 10/15/19 10:26 Temperature 98.4 F Pulse Rate 49 L 46 L 46 L Respiratory Rate 16 14 Blood Pressure 105/51 L 90/35 L 84/34 L Pulse Oximetry 100 98 97 10/15/19 10:31 10/15/19 10:36 10/15/19 10:39 Temperature Pulse Rate 43 L 43 L 45 L Respiratory Rate 16 14 Blood Pressure 85/37 L 82/35 L 93/43 L Pulse Oximetry 100 100 100 10/15/19 10:41 10/15/19 10:47 10/15/19 11:00 Temperature 98.4 F 98.9 F Pulse Rate 45 L 45 L 45 L Respiratory Rate 27 H 12 15 Blood Pressure 93/42 L 90/42 L 102/41 L Pulse Oximetry 97 99 100 10/15/19 11:06 10/15/19 11:30 10/15/19 12:00 Temperature 98.0 F 98.1 F Pulse Rate 43 L 51 L Respiratory Rate 15 17 Blood Pressure 107/45 L 104/46 L Pulse Oximetry 98 99 98 10/15/19 13:00 10/15/19 14:00 Temperature 98.2 F 98.0 F Pulse Rate 42 L 42 L Respiratory Rate 15 15 Blood Pressure 102/44 L 101/49 L Pulse Oximetry 99 99 Oxygen Delivery Method Room Air Oxygen Flow Rate 0 Narrative Exam Narrative: General: Elderly thin and frail-appearing male lying in bed and in no acute distress, well-developed, well-nourished, mild cognitive impairment otherwise appropriately interactive. HEENT: Normocephalic, atraumatic. External ears without defect. Arcus senilis. Pupils equal, round, and reactive to light. Anicteric sclerae, moist conjunctivae, and no lid lag. Oropharynx free of erythema and cobble stoning with moist mucosa. Bitemporal and full body muscle wasting. Neck: Supple with full range of motion. No jugular venous distension. No lymphadenopathy or thyromegaly. Cardiovascular: Regular rhythm, bradycardia, without murmurs, rubs, or gallops appreciated. Pulmonary: Clear to auscultation bilaterally without crackles, wheezes, or rhonchi. Normal respiratory effort with no use of accessory muscles. Abdomen: Soft, scaphoid, bowel sounds present, nontender, nondistended. No hepatosplenomegaly or masses appreciated. Extremities: No clubbing, cyanosis, or edema. Stasis dermatitis of bilateral lower extremities. Skin: Normal temperature, turgor, and texture; no ulcers, or subcutaneous nodules appreciated. Neurological: Cranial nerves grossly intact. Psychiatric: Normal mood and affect. Alert and oriented to person and place. Poor insight. Mild cognitive impairment versus mild dementia with short-term memory recall deficit. Objective Labs Result Diagrams: 10/15/19 17:36 10/15/19 05:40 Labs: Laboratory Results - last 24 hr 10/14/19 10/14/19 10/14/19 14:40 14:40 14:40 WBC 5.9 RBC 2.29 L Hgb 4.2 L* Hct 14.7 L* MCV 64.3 L MCH 18.5 L MCHC 28.7 L RDW 18.9 H Plt Count 221 Neut % (Auto) 61.0 Lymph % (Auto) 28.7 [place] % (Auto) 7.0 Eos % (Auto) 2.5 Baso % (Auto) 0.8 Neut # (Auto) 3600 Lymph # (Auto) 1700 [place] # (Auto) 400 Eos # (Auto) 100 Baso # (Auto) 0 Total Counted Seg Neutrophils % Lymphocytes % (Manual) Atypical Lymphs % Monocytes % (Manual) Neutrophils # (Manual) Nucleated RBCs RBC Morphology See below Polychromasia 1+ H Hypochromasia 3+ H Poikilocytosis Anisocytosis Microcytosis 3+ H Target Cells PT 12.1 INR 1.0 APTT 26 L Sodium Potassium Chloride Carbon Dioxide BUN Creatinine Estimated GFR BUN/Creatinine Ratio Glucose Calcium Magnesium Iron TIBC % Saturation Transferrin Total Bilirubin AST ALT Alkaline Phosphatase Total Creatine Kinase CK-MB (CK-2) CK-MB (CK-2) Rel Index Troponin I Total Protein Albumin Globulin Albumin/Globulin Ratio COVID-19 PCR Blood Type A Positive Antibody Screen Negative Crossmatch See Detail 10/14/19 10/14/19 10/14/19 14:40 15:16 21:00 WBC RBC Hgb 5.5 L* Hct 18.8 L* MCV MCH MCHC RDW Plt Count Neut % (Auto) Lymph % (Auto) [place] % (Auto) Eos % (Auto) Baso % (Auto) Neut # (Auto) Lymph # (Auto) [place] # (Auto) Eos # (Auto) Baso # (Auto) Total Counted Seg Neutrophils % Lymphocytes % (Manual) Atypical Lymphs % Monocytes % (Manual) Neutrophils # (Manual) Nucleated RBCs RBC Morphology Polychromasia Hypochromasia Poikilocytosis Anisocytosis Microcytosis Target Cells PT INR APTT Sodium 132 L Potassium 4.5 Chloride 102 Carbon Dioxide 24 BUN 22 H Creatinine 1.21 Estimated GFR 57.7 L BUN/Creatinine Ratio 18.2 Glucose 119 H Calcium 8.8 Magnesium Iron TIBC % Saturation Transferrin Total Bilirubin 0.4 AST 25 ALT 16 Alkaline Phosphatase 54 Total Creatine Kinase 198 H CK-MB (CK-2) 3.32 H CK-MB (CK-2) Rel Index 1.7 Troponin I < 0.012 Total Protein 5.8 L Albumin 3.6 Globulin 2.2 Albumin/Globulin Ratio 1.6 COVID-19 PCR Negative Blood Type Antibody Screen Crossmatch 10/15/19 10/15/19 10/15/19 05:40 05:40 05:40 WBC 6.5 RBC 3.26 L Hgb 7.4 L Hct 23.6 L MCV 72.6 L D MCH 22.7 L MCHC 31.3 RDW 25.6 H Plt Count 161 Neut % (Auto) Not Reportable Lymph % (Auto) Not Reportable [place] % (Auto) Not Reportable Eos % (Auto) Not Reportable Baso % (Auto) Not Reportable Neut # (Auto) Lymph # (Auto) Not Reportable [place] # (Auto) Not Reportable Eos # (Auto) Baso # (Auto) Not Reportable Total Counted 100 Seg Neutrophils % 80.0 H Lymphocytes % (Manual) 13.0 L Atypical Lymphs % 1.0 H Monocytes % (Manual) 6.0 Neutrophils # (Manual) 5200 Nucleated RBCs 1 H RBC Morphology See below Polychromasia Hypochromasia 2+ H Poikilocytosis 1+ H Anisocytosis 2+ H Microcytosis Target Cells 1+ H PT INR APTT Sodium 133 L Potassium 4.1 Chloride 106 Carbon Dioxide 22 BUN 18 Creatinine 1.05 Estimated GFR > 60.0 BUN/Creatinine Ratio 17.1 Glucose 75 L Calcium 8.7 Magnesium 2.1 Iron 186 H TIBC 378 % Saturation 49 Transferrin 277 Total Bilirubin AST ALT Alkaline Phosphatase Total Creatine Kinase CK-MB (CK-2) CK-MB (CK-2) Rel Index Troponin I Total Protein Albumin Globulin Albumin/Globulin Ratio COVID-19 PCR Blood Type Antibody Screen Crossmatch Assessment & Plan Assessment & Plan narrative: Lalit Wright is an 79-year-old male with a past medical history significant for hypertension, hyperlipidemia, chronic low back pain with left-sided radiculopathy/neuropathy and opiate dependence and colon polyps who presented to the ED at the instruction of his PCP for severe symptomatic anemia. 1. Symptomatic severe microcytic anemia, likely secondary to GI bleed, unclear acuity but likely chronic, present on admission. Active. -Patient presented with mild fatigue and weakness over several weeks but especially over last 3 days. Patient endorses change in stool pattern with intermittent small caliber stools. Patient has history of colon polyps and is overdue for colonoscopy. Significant family history of mother who had metastatic colon cancer. -Initial hemoglobin 4.1 with MCV 64.3. Received 4 units PRBC. Hemoglobin now 7.4. Transfusion goal hemoglobin < 7.0. Continue to monitor H&H 1-2 times daily. -Stool guaiac negative in ED. -Ordered anemia workup including: Iron profile with saturation and ferritin which demonstrated iron deficiency anemia, reticulocyte count high normal at 2.6 %, B12 mildly low at 231 and folate normal at 13.9. -Continue Protonix 40 mg IV twice daily. -Consulted general surgery, Dr. Ramirez, who performed EGD which demonstrated duodenal petechia, consistent with duodenitis, gastric petechia consistent with gastritis, raised and flat polyps in the stomach, with no active bleeding, 1-2 cm tongues of salmon-colored mucosa consistent with Yung's esophagus in the distal esophagus. Plan for colonoscopy tomorrow. Start bowel prep this evening and NPO midnight. 2. Unintentional weight loss with likely protein calorie malnutrition, likely acute on chronic, present on admission. Active. -BMI 20.7. -Patient endorses unintentional weight loss of unknown amount but notes his clothes fitting more loosely. -Consulted dietitian and we appreciate her time and recommendations, pending. 3. Hypertension, chronic, present on admission. Stable. -Held home lisinopril 5 mg daily due to low normal blood pressure. 4. Hyperlipidemia, chronic, present on admission. Stable. -Continue home simvastatin 20 mg daily at bedtime. 5. 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 Stable. -Continue home oxycodone 5 mg daily as needed. -Ordered physical and occupational therapy evaluation and treatment, pending. Code status: Full code VTE prophylaxis: SCDs, chemical prophylaxis contraindicated Disposition: Patient likely to discharge home in 1-2 days once colonoscopy performed and anemia stable. Quality VTE Deep Vein Thrombosis/Pulmonary Embolism Present on Admission: No
[2019-10-15 14:49] LABS: HEMOLYSIS < 15 (0-50); Iron 16 ug/dL (49-181)
[2019-10-15] MEDS: OXYCODONE IR 5 MG TABLET PO (14:49)
[2019-10-15 15:00] LABS: Percent Iron Saturation 4 % (20-50); Total Iron Binding Capacity 386 ug/dL (261-462); Transferrin 321 mg/dL (206-381)
[2019-10-15 15:05] LABS: Reticulocyte Count, Percent 2.6 % (0.87-2.60)
--- NOTE | 2019-10-15 15:55 | PC.NURSE ---
Addendum entered by Daniella Damon R.N. 10/15/19 22:48: Noted pt more forgetful and repeats self as evening progresses. Reinforced prep consumption prior to midnight. Addendum entered by Daniella Damon R.N. 10/15/19 22:08: Successful blood draw by second phelbotomist. Failed iv left ac. New start required RN's x 3 with three total attemps. Able to place 24 gauge. Pt up to commode for liquid brown stool mixed with urine. Encouraged golytely prep and informed pt must be completed by midnight. Offered pt oxycodone to treat back pain several times this shift and pt declines, Not yet. Addendum entered by Daniella Damon R.N. 10/15/19 17:34: Lab reports difficulty drawing blood as ordered. Additional piano mover in to attempt. Addendum entered by Daniella Damon R.N. 10/15/19 17:26: Pt begun on golytely bowel prep. Original Note: Pt is awake and alert squirming in bed. Reports back pain is much improved and denies pain at this assessment. P.T. in to assess and ambulate pt in hallway. Pt denies dizziness when up. IV to left ac leaking with fluid infusion and dressing was changed straightening out iv catheter in the process. Pt reports numbness to feet BL r/t prior back surgery. Denies falls at home. Pt is alert and oriented and able to make needs and wants known to staff members.
--- NOTE | 2019-10-15 16:29 | PT.IIE ---
Current Diagnoses Other specified anemias (10/14/19) Surgery Performed Operation Date: 10/15/19 10:00 Actual Procedures p Esophagogastroduodenoscopy with Biopsy - Loren Rico MD Operation Date: 10/16/19 09:30 <No data on this case meets the specified criteria> Surgical History (Last Reviewed 10/14/19 @ 23:43 by Rosalind Fraser DO) H/O colonoscopy (Acute) History of cholecystectomy (Acute) History of lumbar fusion (Acute) History of tonsillectomy (Acute) S/P repair of hydrocele (Acute) Medical History (Last Reviewed 10/14/19 @ 23:43 by Rosalind Fraser DO) Colon polyps (Acute) Hydrocele, left (Acute) Hyperlipidemia (Acute) Hypertension (Acute) Lumbar radiculopathy (Acute) Physical Therapy Inpatient Evaluation/Re-Eval M1 PT/OT-IP Prior Functional Status Start: 10/15/19 16:02 Freq: NEEDED Status: Active Protocol: Document 10/15/19 16:02 (Rec: 10/15/19 16:29 [email or web address]) Medical Review Prior Functional Status Medical History Reviewed Yes Diet/Fluid Consistency Regular Communication no deficits noted. Mobility and Gait independent ambulator at home and community. Pt uses SPC for community ambulation. Denies hx of fall. He states he has been staying home mostly for the past year. He also says My furniture is close enough to hold on to if I feel dizzy Activities of Daily Living and IADL's independent for ADLs and IADLs . Able to drive and grocery shop. Social History Household Members none Living Arrangements House Number of Floors (Floors) One Floor Number of Stairs To Enter/Railing? 2 LARISSA from garage entrance to kitchen with a SPC Home Environment Standard Height Toilet,Walk in Shower Home Equipment Straight Cane,Hand Held Shower Employment Status Retired Additional Social History Comment Pt lives alone in [facility]. He has a supportive daughter Ghislaine Vergara: [phone] and her James who live in [place]. He also has 2 adult grandchildren, both of whom are and live in [place]. He stated her family might be able to help if he goes home. M2 PT-IP Current Condition Start: 10/15/19 16:02 Freq: NEEDED Status: Active Protocol: Document 10/15/19 16:02 (Rec: 10/15/19 16:29 [email or web address]) Physical Therapy Current Condition Current Condition Evaluation Date 10/15/19 Treatment Diagnosis severe anemia, possible GI bleed, generalized weakness Onset Date 10/14/19 Weight Bearing Status Weight Bearing Status Full Weight Bearing M3 PT-IP Subjective Start: 10/15/19 16:02 Freq: NEEDED Status: Active Protocol: Document 10/15/19 16:02 (Rec: 10/15/19 16:29 [email or web address]) Subjective Physical Therapy Visit Type Type Initial Evaluation Visit Start Time 15:32 Visit Stop Time 16:00 Total Visit Minutes 28 Notes Pt had EGD this morning which demonstrated duodenal petechia , consistent with duodenitis, gastric petechia consistent with gastritis, raised and flat polyps in the stomach, with no active bleeding. He will have colonoscopy tomorrow morning. H&H at 5:40 am = RBC 3.26L, Hgb= 7.4L, Hct= 23.6L after 3 RBC unit. Spoke to CYNTHIA Macedo, pt has been getting OOB using BSC with 1PA and asymptomatic. Proceed with therapy. Number of MEDICAL CENTER DIRECTOR Visits 0 Physical Therapy Visit Comments Patient Comments Im feeling better today. Patient Goals To get better so i can go home. Therapy Pain Assessment Pain When Pain Assessed During Mobility Pain Present Pain Present Pain Reported Location Lower Back Intensity 2 Description Aching Pain Management Techniques Timing of Activity with Medications M4 PT-IP Mobility and Gait Start: 10/15/19 16:02 Freq: NEEDED Status: Active Protocol: Document 10/15/19 16:02 (Rec: 10/15/19 16:29 [email or web address]) PT-Bed Mobility Assessment Supine to Sit Supine to Sit Standby Assistance Scooting Scooting to Edge of Bed Standby Assistance PT-Transfer Assessment Sit to and From Stand Sit to and from Stand Contact Guard Assistance Equipment Transfer Assistive Device Gait Belt,Straight Cane Orthotic/Prosthetic Devices or Brace: No Transfers Transfer Destination Bed Transfer Technique Stand Step Pivot Transfer Ability Level of Assist Contact Guard Assistance,Use of Upper Extremities Comments Mobility Comments Pt was in bed upon PT arrival. Denies discomfort but weakness and chronic LBP. BP at 102/48 HR 49. AxO x 4. He agreed to mobilize with PT. Pt completed supine to long sit at first to adjust his socks followed pivoting himself to L EOB with SBA. He then took his time to scoot to EOB and stood up by pushing from his bed. He was steady without support. Provided pt his SPC after and he began to amb with PT assisting with his IV pole and CGA. Pt then amb towards room window and went to hallway after . Pt demonstrated small steps but appeared to be steady. He completed a total of 120 ft with SPC and returned to bed d /t fatigue. He denied any lightheadiness and dizziness. He was able to complete sit to supine independently after and rest comfortably in bed. BP at 108/56 HR 64. Bed alarm activated and call light placed within reach. Gait Assessment Gait Gait Assistance Required: Contact Guard Assist Distance (Feet) 120 Able to Maintain Weight Bearing Status Yes During Gait Assistive Devices Assistive Device Gait Belt,Straight Cane Gait Deviations General Gait Pattern Decreased Stride Length, Decreased Feet Clearance, Flexed Trunk Factors Limiting Gait Function Factors Limiting Gait Function Decreased Activity Tolerance, Decreased Strength,Pain,Poor Balance Comments Gait Comments see mobility comments. Stair Climbing Assessment Comments Stair Climbing Comments did not assess d/t weakness PT-Balance Assessment Sitting Balance and Reactions Static Sitting Balance Ability Normal Dynamic Sitting Balance Ability Normal Standing Balance and Reactions Static Standing Balance Ability Good Dynamic Standing Balance Ability Good Device Used spc M5 PT-IP Objective Assessments Start: 10/15/19 16:02 Freq: NEEDED Status: Active Protocol: Document 10/15/19 16:02 (Rec: 10/15/19 16:29 [email or web address]) Orientation Orientation/Cognition Level of Alertness Alert Orientation Name,Age,Birthday,Month,Date, Year,Day of Week,Place, Situation Language Function Ability No Deficits Noted Safety Awareness Understands Safety Issues Memory Description No Deficits Noted Gross Range of Motion Upper Extremity ROM Assessment Within Functional Limits Lower Extremity ROM Assessment Within Functional Limits Strength Upper Extremity Strength Assessment Within Functional Limits Lower Extremity Strength Assessment Bilaterally Impaired Hip 4/5 Knee 4/5 Ankle 5/5 Coordination Assessment Gross Coordination Gross Coordination WNL Sensation Assessment Sensation Gross Sensation WNL Muscle Tone Muscle Tone WNL Yes M6 PT-IP Treatment Start: 10/15/19 16:02 Freq: NEEDED Status: Active Protocol: Document 10/15/19 16:02 (Rec: 10/15/19 16:29 [email or web address]) Physical Therapy Treatment Exercises Exercises Ankle Pumps,Quad Sets Education Education Provided Safety M7 PT-IP Assessment and Plan Start: 10/15/19 16:02 Freq: NEEDED Status: Active Protocol: Document 10/15/19 16:02 (Rec: 10/15/19 16:29 [email or web address]) PT Summary Assessment and Plan Potential Rehabilitation Potential Good Status of Condition at Evaluation Evolving Summary Impairments Pain,Strength,Balance,Bed Mobility,Transfers,Gait, Activity Tolerance Assessment Summary This is a low complexity evaluation for this 79 yo male admitted to d/t severe anemia and possible GI bleed. Per EMR, EGD this morning which demonstrated duodenal petechia, consistent with duodenitis, gastric petechia consistent with gastritis, raised and flat polyps in the stomach, with no active bleeding. He will also have colonoscopy tomorrow morning. H&H at 5:40 am today = RBC 3. 26L, Hgb= 7.4L, Hct= 23.6L after 3 RBC unit. Spoke to CYNTHIA Macedo, pt has been getting OOB using BSC with 1PA and asymptomatic. Upon assessment, pt mobilizes fairly well with SBA/ CGA with SPC. Pt denied dizzyness/ lightheadiness but LBP. His BP was stable at 100s /40s. However, he looks fragile at this point and fatigue easily. Pt also lives alone with limited family support as he stated. Pt might benefit from home health therapy once he is medically stable which can improve his functional mobility and strength. Goals Bed Mobility Goal Independent Transfer Goal Independent,Cane Gait Goal Independent,Cane Gait Distance 200 Other Goals climb 2 steps with SPC independently Days to Meet Goals 5 Frequency of Treatment Frequency Of Treatment Once a Day Treatment Plan Physical Therapy Treatment Plan Bed Mobility Training,Transfer Training,Gait Training, Therapeutic Exercise,Balance Retraining,Neuromuscular Re-ed Other Recommendations and Next Treatment monitor vital signs Focus check H&H mobility as yamilet climb 2 steps iwth SPC if possible Recommendations To Nursing Amount of Assist Needed 1 Person Assist Discharge Recommendations PT Discharge Recommendations Home,Home with Assistance,Home Health Transportation Needs at Discharge Private Vehicle
[2019-10-15 16:37] LABS: Ferritin 6 ng/mL (18-464)
[2019-10-15] MEDS: PEG3350/SOD SULF,BICARB,CL/KCL 4,000 ML SOLUTION 4000 ML PO (16:53)
[2019-10-15 17:07] LABS: Folate 13.9 ng/mL (2.76-20.0); Vitamin B12 231 pg/mL (239-931)
[2019-10-15 17:43] LABS: Hematocrit 27.5 % (41-53); Hemoglobin 8.4 g/dL (13.5-17.5); Mean Corpuscular HGB Conc 30.5 % (30-36); Mean Corpuscular Hemoglobin 22.7 PG (26-34); Mean Corpuscular Volume 74.5 fL (80-100); Red Blood Cell Count 3.69 X10^6/uL (4.5-5.9); Red Cell Distribution Width 25.1 % (11.6-14.8); White Blood Cell Count 8.3 X10^3/uL (4.5-11.0)
[2019-10-15 17:44] LABS: Platelet Count 164 X10^3/uL (150-400)
[2019-10-15] MEDS: SIMVASTATIN 20 MG TABLET PO (21:11)
[2019-10-16] VITALS (22 sets, daily range): BP systolic 85–115; BP diastolic 36–58; PULSE 40–62; RESP 9–20; TEMP 35.9–37.6; O2SAT 93–100; BMI 20.2
[2019-10-16] MEDS: DEXTROSE 5%-0.9% NS 1,000 ML 75 ML IV (03:51)
[2019-10-16 06:06] LABS: Basophils Absolute Auto 0 /uL (0-100); Basophils Percent Auto 0.5 % (0-2); Eosinophils Absolute Auto 200 /uL (0-450); Eosinophils Percent Auto 2.4 % (2-4); Hemoglobin 7.6 g/dL (13.5-17.5); Lymphocytes Absolute Auto 1100 /uL (1100-4500); Lymphocytes Percent Auto 14.1 % (25-40); Mean Corpuscular HGB Conc 30.4 % (30-36); Mean Corpuscular Hemoglobin 22.7 PG (26-34); Mean Corpuscular Volume 74.5 fL (80-100); Monocytes Absolute Auto 700 /uL (0-900); Monocytes Percent Auto 9.5 % (3-14); Neutrophils Absolute Auto 5600 /uL (1500-7000); Neutrophils Percent Auto 73.5 % (50-75); Platelet Count 125 X10^3/uL (150-400); Red Blood Cell Count 3.36 X10^6/uL (4.5-5.9); Red Cell Distribution Width 25.9 % (11.6-14.8); White Blood Cell Count 7.6 X10^3/uL (4.5-11.0)
[2019-10-16 06:08] LABS: BUN Creatinine Ratio 13.3 (6-22); Blood Urea Nitrogen 12 mg/dL (9-20); Calcium 8.4 mg/dL (8.4-10.2); Carbon Dioxide 25 mmol/L (22-32); Chloride 110 mmol/L (98-107); Estimated Glomerular Filt Rate > 60.0 mL/min (>60); Glucose 82 mg/dL (80-110); HEMOLYSIS < 15 (0-50); Magnesium 2.1 mg/dL (1.6-2.3); Potassium 3.7 mmol/L (3.4-5.1); Sodium 137 mmol/L (137-145)
[2019-10-16 06:09] LABS: Add Manual Diff / Slide Review SLIDE REVIEW
[2019-10-16 07:13] LABS: Platelet Morphology Comment GIANT
[2019-10-16 07:14] LABS: Anisocytosis 2+
[2019-10-16] MEDS: SODIUM CHLORIDE 0.9% FLUSH 10 ML IV (07:33)
[2019-10-16] MEDS: PANTOPRAZOLE 40 MG VIAL IV (07:33)
--- NOTE | 2019-10-16 08:46 | PC.NURSE ---
Patient up to BSC this am with SB assistance. Stool is liquid yellow and clear. Patient picked up for Colonoscopy procedure.
[2019-10-16] MEDS: LACTATED RINGERS 1,000 ML 125 ML IV (08:49)
--- NOTE | 2019-10-16 09:23 | PM.PREOP ---
Pre-operative Note COVID-19 COVID-19 status: Negative Result date/Date tested (Pos, Neg/Pending): 10/14/19 Interval Note History & Physical reviewed/Exam performed by Physician: Yes Changes to H&P: Yes H&P completed within 30 days and has changed as indicated here:: The patient had a negative EGD as a source of his anemia. I have discussed the procedure and the rationale with the patient including risks of bleeding, perforation which would necessitate a major operation, failure to find remove all lesions and the potential to tattoo. They appeared to understand and wished to proceed. ASA Class (for procedural sedation): III
[2019-10-16] MEDS: fentaNYL 250 MCG/5 ML INJ IV (09:26)
[2019-10-16] MEDS: MIDAZOLAM 5 MG/5 ML VIAL IV (09:26)
--- NOTE | 2019-10-16 10:08 | PM.OP.ENDO ---
Operative Date/Time/Diagnoses Date of procedure: 10/16/19 Time of procedure: 10:08 Pre-op diagnosis: Anemia Post-op diagnosis: same (Diverticulosis) Procedure & Clinicians Study performed: Colonoscopy Same procedure as scheduled: Yes Indications: Rule out GI source of anemia Surgeon: Chris Gastelum Procedure Notes SCOAP/Timeout: Performed Procedure in detail: The patient was placed in the left lateral decubitus position and underwent IV sedation directed by the surgeon consisting of fentanyl and Versed. Digital exam was remarkable for narrowing just inside the anal verge. The scope was inserted and advanced through the rectum into the sigmoid, descending, transverse, and ascending colon. The patient was noted to have a few diverticulum. The colon was quite tortuous.. The cecum was reached identified by the ileocecal valve . There is a small portion of the cecum I did not see well and no matter how I tried to manipulate the scope back it out and reinserted over and over, reposition the patient and inserted a stiffener I could not see that portion of the cecum. There was certainly no large lesions within it. The scope was gradually brought out. No Polyps were found. The scope ultimately was attempted to be retroflexed in the rectum. I was unsuccessful therefore the scope was brought through the anal verge but no lesions were seen, including at the level of the digital narrowing noted at the beginning of the procedure. The scope was removed and the patient tolerated the procedure well. The prep was excellent. Scope withdrawal time: Over 6 minutes Sedation minutes: 38 Findings: diverticulosis Specimen(s): none sent Complications: none Post-procedure Plan for aftercare: Look for other sources of anemia. There was no evidence that his colon was the source of his anemia. Follow up: as needed Disposition: PACU
--- NOTE | 2019-10-16 10:59 | SUR.OPER ---
Patient presented with a small quarter sized scrape on the lower left lateral chest. An Allyeven bandage was placed over it in PACU.
--- NOTE | 2019-10-16 11:20 | SUR.PHASEI ---
Pt transferred to acute care floor in stable condition, vss. Bedside report given to CYNTHIA Olivia. Pt alert and talking to RN during transferred. Transferred care of pt to CYNTHIA Olivia at that time.
--- NOTE | 2019-10-16 12:19 | PT-IP ANOTE ---
Attempted to see pt at 1130 am and he just returned from colonoscopy 5 mins ago. Pt reports of fatigue and would like to do PT in pm. Colonoscopy result : There was no evidence that his colon was the source of his anemia. Will attempt to see pt this pm again. Pt H&H this morning: RBC 3.36, Hgb 7.6 Hct 25
--- NOTE | 2019-10-16 13:28 | PC.NURSE ---
Patient received back from procedure in bed, awake but drowsy. He asks when is lunch?. VSS, heart rate remains in 40's as seen over last 24 hours. Patient denies complaint, spoke with his daughter over the phone. Order for clear liquid diet. Resting comfortably in bed, call light within reach, bed alarm active for safety.
--- NOTE | 2019-10-16 15:27 | PT.IPTN ---
Current Diagnoses Other specified anemias (10/14/19) Surgery Performed Operation Date: 10/15/19 10:00 Actual Procedures p Esophagogastroduodenoscopy with Biopsy - Loren Rico MD Operation Date: 10/16/19 09:30 Actual Procedures p Colonoscopy(Not Applicable) - Chris Gastelum MD Physical Therapy Treatment Note M2 PT-IP Current Condition Start: 10/15/19 16:02 Freq: NEEDED Status: Active Protocol: Document 10/15/19 16:02 HH (Rec: 10/15/19 16:29 [email or web address]) Physical Therapy Current Condition Current Condition Evaluation Date 10/15/19 Treatment Diagnosis severe anemia, possible GI bleed, generalized weakness Onset Date 10/14/19 Weight Bearing Status Weight Bearing Status Full Weight Bearing M3 PT-IP Subjective Start: 10/15/19 16:02 Freq: NEEDED Status: Active Protocol: Document 10/16/19 14:58 LJ (Rec: 10/16/19 15:27 LJ [id number]) Subjective Physical Therapy Visit Type Type Treatment Note Visit Start Time 14:58 Visit Stop Time 15:12 Total Visit Minutes 14 Notes pt sleeping soundly in bed Number of INTER COM SERVICER Visits 1 Physical Therapy Visit Comments Patient Comments willing to do PT M4 PT-IP Mobility and Gait Start: 10/15/19 16:02 Freq: NEEDED Status: Active Protocol: Document 10/16/19 14:58 LJ (Rec: 10/16/19 15:27 LJ [id number]) PT-Bed Mobility Assessment Supine to Sit Supine to Sit Standby Assistance Scooting Scooting to Edge of Bed Standby Assistance PT-Transfer Assessment Sit to and From Stand Sit to and from Stand Contact Guard Assistance Equipment Transfer Assistive Device Gait Belt,Front Wheeled Walker Transfers Transfer Destination Chair Transfer Ability Level of Assist Contact Guard Assistance,Use of Upper Extremities Comments Mobility Comments Pt in bed sleeping soundly. Difficult to arouse. Pt SBA for bed mobility but reporting feeling weak and somewhat dizzy. BP 105/42, HR 45 in sitting. Pt stood for 1 minute prior to ambulating. Initially several slight posterior LOB while ambulating in room. Ambulated in hallway around N nurse;s station ~215 ' CGA. Pt returned to room and sat in chair. SBA for transfers. Gait Assessment Gait Gait Assistance Required: Contact Guard Assist Distance (Feet) 120 Able to Maintain Weight Bearing Status Yes During Gait Assistive Devices Assistive Device Gait Belt,Front Wheeled Walker Gait Deviations General Gait Pattern Decreased Stride Length, Decreased Feet Clearance, Flexed Trunk Factors Limiting Gait Function Factors Limiting Gait Function Decreased Activity Tolerance, Decreased Strength,Pain,Poor Balance Comments Gait Comments see mobility comments. Stair Climbing Assessment Comments Stair Climbing Comments did not assess d/t weakness and dizziness M5 PT-IP Objective Assessments Start: 10/15/19 16:02 Freq: NEEDED Status: Active Protocol: Document 10/15/19 16:02 (Rec: 10/15/19 16:29 [email or web address]) Orientation Orientation/Cognition Level of Alertness Alert Orientation Name,Age,Birthday,Month,Date, Year,Day of Week,Place, Situation Language Function Ability No Deficits Noted Safety Awareness Understands Safety Issues Memory Description No Deficits Noted Gross Range of Motion Upper Extremity ROM Assessment Within Functional Limits Lower Extremity ROM Assessment Within Functional Limits Strength Upper Extremity Strength Assessment Within Functional Limits Lower Extremity Strength Assessment Bilaterally Impaired Hip 4/5 Knee 4/5 Ankle 5/5 Coordination Assessment Gross Coordination Gross Coordination WNL Sensation Assessment Sensation Gross Sensation WNL Muscle Tone Muscle Tone WNL Yes M6 PT-IP Treatment Start: 10/15/19 16:02 Freq: NEEDED Status: Active Protocol: Document 10/16/19 14:58 ANGEL (Rec: 10/16/19 15:27 LJ [id number]) Physical Therapy Treatment Exercises Exercises Ankle Pumps,Gluteal Sets,Heel Slides,Straight Leg Raises, Short Arc Quads Education Education Provided Safety Other Treatments Other Treatment Performed standing marches prior to ambulation M7 PT-IP Assessment and Plan Start: 10/15/19 16:02 Freq: NEEDED Status: Active Protocol: Document 10/16/19 14:58 ANGEL (Rec: 10/16/19 15:27 LJ [id number]) PT Summary Assessment and Plan Potential Rehabilitation Potential Good Status of Condition at Evaluation Evolving Summary Impairments Pain,Strength,Balance,Bed Mobility,Transfers,Gait, Activity Tolerance Assessment Summary Pt was very sleepy during most of tx session. He is SBA for bed mobility and transfers to from bed and chair. Slight LOB during ambulation which diminished after walking down the haines a short distance ~50' . Pt returned to room and sat in chair. SHIRT FINISHER in room placing call light near pt. Goals Bed Mobility Goal Independent Transfer Goal Independent,Cane Gait Goal Independent,Cane Gait Distance 200 Other Goals climb 2 steps with SPC independently Days to Meet Goals 5 Frequency of Treatment Frequency Of Treatment Once a Day Treatment Plan Physical Therapy Treatment Plan Bed Mobility Training,Transfer Training,Gait Training, Therapeutic Exercise,Balance Retraining,Neuromuscular Re-ed Other Recommendations and Next Treatment monitor vital signs Focus check H&H mobility as yamilet climb 2 steps iwth SPC if possible Recommendations To Nursing Amount of Assist Needed Standby Assistance Discharge Recommendations PT Discharge Recommendations Home,Home with Assistance,Home Health Transportation Needs at Discharge Private Vehicle
--- NOTE | 2019-10-16 16:17 | P.PN_ITS ---
Subjective Subjective Date Patient Seen: 10/16/19 Interval history: Lalit Wright is an 79-year-old male with a past medical history significant for hypertension, hyperlipidemia, chronic low back pain with left-sided radiculopathy/neuropathy and opiate dependence and colon polyps who presented to the ED at the instruction of his PCP for severe symptomatic anemia. Patient is resting in bed and recovering postoperatively from colonoscopy. The colonoscopy did not reveal a source of bleeding and there were no polyps. The patient relays that he does not want further workup of is his anemia such as pill endoscopy or hematologic evaluation and from here on out would only like symptomatic contro with transfusion if necessary. Plan to give IV iron today. He has no complaints and denies headache, chest pain, shortness of breath, abdominal pain, nausea, vomiting, fever, chills, dysuria, diarrhea or constipation. Patient is voiding and eliminating without difficulty. Patient is up ambulating with assistance. Exam Vital Signs (past 8 hours): - 10/16/19 08:45 10/16/19 10:14 10/16/19 10:19 Temperature 98.0 F 97.3 F L Pulse Rate 46 L 53 L 54 L Respiratory Rate 9 L 13 12 Blood Pressure 112/47 L 90/39 L 85/39 L Pulse Oximetry 100 96 95 10/16/19 10:24 10/16/19 10:29 10/16/19 10:34 Temperature Pulse Rate 56 L 45 L 50 L Respiratory Rate 12 11 L 13 Blood Pressure 85/42 L 88/36 L 98/39 L Pulse Oximetry 95 95 93 10/16/19 10:49 10/16/19 10:53 10/16/19 11:05 Temperature 97.2 F L 96.7 F L Pulse Rate 41 L 47 L 44 L Respiratory Rate 13 12 15 Blood Pressure 106/41 L 98/42 L 102/58 L Pulse Oximetry 95 97 100 10/16/19 11:08 10/16/19 11:30 10/16/19 12:00 Temperature 98.1 F 97.1 F L 97.6 F Pulse Rate 45 L 45 L 42 L Respiratory Rate 14 15 14 Blood Pressure 110/44 L 94/43 L 100/49 L Pulse Oximetry 100 100 100 10/16/19 13:00 10/16/19 14:00 10/16/19 15:15 Temperature 98 F 98 F 96.9 F L Pulse Rate 41 L 40 L 45 L Respiratory Rate 15 15 17 Blood Pressure 105/47 L 115/51 L 105/52 L Pulse Oximetry 100 100 99 Oxygen Delivery Method Room Air Oxygen Flow Rate 0 Narrative Exam Narrative: General: Elderly thin and frail-appearing male lying in bed and in no acute distress, well-developed, well-nourished, mild cognitive impairment otherwise appropriately interactive. HEENT: Normocephalic, atraumatic. External ears without defect. Arcus senilis. Pupils equal, round, and reactive to light. Anicteric sclerae, moist conjunctivae, and no lid lag. Oropharynx free of erythema and cobble stoning with moist mucosa. Bitemporal and full body muscle wasting. Neck: Supple with full range of motion. No jugular venous distension. No lymphadenopathy or thyromegaly. Cardiovascular: Regular rhythm, bradycardia, without murmurs, rubs, or gallops appreciated. Pulmonary: Clear to auscultation bilaterally without crackles, wheezes, or rhonchi. Normal respiratory effort with no use of accessory muscles. Abdomen: Soft, scaphoid, bowel sounds present, nontender, nondistended. No hep atosplenomegaly or masses appreciated. Extremities: No clubbing, cyanosis, or edema. Stasis dermatitis of bilateral lower extremities. Skin: Normal temperature, turgor, and texture; no ulcers, or subcutaneous nodules appreciated. Neurological: Cranial nerves grossly intact. Psychiatric: Normal mood and affect. Alert and oriented to person and place. Poor insight. 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 Objective Labs Result Diagrams: 10/16/19 05:30 10/16/19 05:30 Labs: Laboratory Results - last 24 hr 10/14/19 10/14/19 10/15/19 14:40 14:40 17:36 WBC 8.3 RBC 3.69 L Hgb 8.4 L Hct 27.5 L MCV 74.5 L MCH 22.7 L MCHC 30.5 RDW 25.1 H Plt Count 164 Neut % (Auto) Lymph % (Auto) [place] % (Auto) Eos % (Auto) Baso % (Auto) Neut # (Auto) Lymph # (Auto) [place] # (Auto) Eos # (Auto) Baso # (Auto) Plt Morphology Comment RBC Morphology Anisocytosis Sodium Potassium Chloride Carbon Dioxide BUN Creatinine Estimated GFR BUN/Creatinine Ratio Glucose Calcium Magnesium Ferritin 6 L Vitamin B12 231 L Folate 13.9 TSH 1.70 10/16/19 10/16/19 05:30 05:30 WBC 7.6 RBC 3.36 L Hgb 7.6 L Hct 25.0 L MCV 74.5 L MCH 22.7 L MCHC 30.4 RDW 25.9 H Plt Count 125 L Neut % (Auto) 73.5 Lymph % (Auto) 14.1 L [place] % (Auto) 9.5 Eos % (Auto) 2.4 Baso % (Auto) 0.5 Neut # (Auto) 5600 Lymph # (Auto) 1100 [place]lands # (Auto) 700 Eos # (Auto) 200 Baso # (Auto) 0 Plt Morphology Comment Giant RBC Morphology Not Reportable Anisocytosis 2+ H Sodium 137 Potassium 3.7 Chloride 110 H Carbon Dioxide 25 BUN 12 Creatinine 0.90 Estimated GFR > 60.0 BUN/Creatinine Ratio 13.3 Glucose 82 Calcium 8.4 Magnesium 2.1 Ferritin Vitamin B12 Folate TSH Assessment & Plan Assessment & Plan narrative: Lalit Wright is an 79-year-old male with a past medical history significant for hypertension, hyperlipidemia, chronic low back pain with left-sided radiculopathy/neuropathy and opiate dependence and colon polyps who presented to the ED at the instruction of his PCP for severe symptomatic anemia. 1. Symptomatic severe microcytic anemia, likely secondary to GI bleed, unclear acuity but likely chronic, present on admission. Resolving. -Patient presented with mild fatigue and weakness over several weeks but especially over last 3 days. Patient endorses change in stool pattern with intermittent small caliber stools. Patient has history of colon polyps and is overdue for colonoscopy. Significant family history of mother who had metastatic colon cancer. -Initial hemoglobin 4.1 with MCV 64.3. Received 4 units PRBC. Hemoglobin now 7.4. Transfusion goal hemoglobin < 7.0. Continue to monitor H&H 1-2 times daily. -Stool guaiac negative in ED. -Ordered anemia workup including: Iron profile with saturation and ferritin which demonstrated iron deficiency anemia, reticulocyte count high normal at 2. 6%, B12 mildly low at 231 and folate normal at 13.9. Ordered venofer 200 mg IV x 1. -Continue Protonix 40 mg PO daily. -Consulted general surgery, Dr. Ramirez, who performed EGD which demonstrated duodenal petechia, consistent with duodenitis, gastric petechia consistent with gastritis, raised and flat polyps in the stomach, with no active bleeding, 1-2 cm tongues of salmon-colored mucosa consistent with Yung's esophagus in the distal esophagus. Dr. Gastelum performed colonoscopy which was unrevealing and demonstrated diverticulosis. 2. Unintentional weight loss with likely protein calorie malnutrition, likely acute on chronic, present on admission. Active. -BMI 20.7. -Patient endorses unintentional weight loss of unknown amount but notes his clothes fitting more loosely.He reports since coronavirus it has been hard for him to eat well as he can no longer go get food at local restaurants and has to make all his food. -Consulted dietitian and we appreciate her time and recommendations. 3. Hypertension, chronic, present on admission. Stable. -Held home lisinopril 5 mg daily due to low normal blood pressure. 4. Hyperlipidemia, chronic, present on admission. Stable. -Continue home simvastatin 20 mg daily at bedtime. 5. 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 Stable. -Continue home oxycodone 5 mg daily as needed. -Continue physical and occupational therapy evaluation and treatment. SLUMS score +15/20 indicative of dementia. Code status: Full code VTE prophylaxis: SCDs, chemical prophylaxis contraindicated Disposition: Patient likely to discharge home with home health tomorrow if blood counts are stable. Quality VTE Deep Vein Thrombosis/Pulmonary Embolism Present on Admission: No
--- NOTE | 2019-10-16 17:00 | OT.IP.EVAL ---
Current Diagnoses Other specified anemias (10/14/19) Surgery Performed Operation Date: 10/15/19 10:00 Actual Procedures p Esophagogastroduodenoscopy with Biopsy - Loren Rico MD Operation Date: 10/16/19 09:30 Actual Procedures p Colonoscopy(Not Applicable) - Chris Gastelum MD Past Medical History (Last Reviewed 10/14/19 @ 23:43 by Roslaind Fraser DO) Colon polyps (Acute) Hydrocele, left (Acute) Hyperlipidemia (Acute) Hypertension (Acute) Lumbar radiculopathy (Acute) Surgical History (Last Reviewed 10/14/19 @ 23:43 by Rosalind Fraser DO) H/O colonoscopy (Acute) History of cholecystectomy (Acute) History of lumbar fusion (Acute) History of tonsillectomy (Acute) S/P repair of hydrocele (Acute) Occupational Therapy Inpatient Evaluation/Re-Eval M1 PT/OT-IP Prior Functional Status Start: 10/16/19 18:16 Freq: NEEDED Status: Active Protocol: Document 10/16/19 16:10 [facility] (Rec: 10/16/19 18:46 [facility] [id number]) Medical Review Prior Functional Status Medical History Reviewed Yes Diet/Fluid Consistency Regular Communication no deficits noted. Mobility and Gait independent ambulator at home and community. Pt uses SPC for community ambulation. Denies hx of fall. He states he has been staying home mostly for the past year. He also says My furniture is close enough to hold on to if I feel dizzy Activities of Daily Living and IADL's independent for ADLs and IADLs . Able to drive and grocery shop. Social History Household Members none Living Arrangements House Number of Floors (Floors) One Floor Number of Stairs To Enter/Railing? 2 LARISSA from garage entrance to kitchen with a SPC Home Environment Standard Height Toilet,Walk in Shower Home Equipment Straight Cane,Hand Held Shower Additional Social History Comment Pt lives alone in [facility]. He has a supportive daughter Ghislaine Vergara: [phone] and her James who live in [place]. He also has 2 adult grandchildren, both of whom are and live in [place]. He stated her family might be able to help if he goes home. M2 OT-IP Current Condition Start: 10/16/19 18:16 Freq: Status: Active Protocol: Document 10/16/19 16:10 [facility] (Rec: 10/16/19 18:46 [facility] [id number]) Occupational Therapy Current Condition Current Condition Evaluation Date 10/16/19 Treatment Diagnosis Anemia Diagnosis Onset Date 10/14/19 M3 OT- IP Subjective and Pain Start: 10/16/19 18:16 Freq: Status: Active Protocol: Document 10/16/19 16:10 [facility] (Rec: 10/16/19 18:46 [facility] [id number]) OT- Subjective Occupational Therapy Visit Type Type Initial Evaluation Visit Start Time 16:10 Visit Stop Time 17:00 Total Visit Minutes 50 Occupational Therapy Visit Comments Patient Comments Pt in the recliner and agreed to get up for OT eval. Hospitalist came in to see pt for part of the session to discuss the results of his colonoscopy. Patient/Caregiver Goals To go home. OT Pain Assessment Pain When Pain Assessed At Rest Pain Present Pain Present Denied Pain M4 OT- IP ADL's Start: 10/16/19 18:16 Freq: Status: Active Protocol: Document 10/16/19 16:10 [facility] (Rec: 10/16/19 18:46 [facility] [id number]) OT ELI-Yaqb-Jpusxsk General Evaluation Self-Feeding Ability Independent OT ADL-Grooming General Evaluation Grooming Ability Standby Assistance Comments OT Grooming Comments Set-up and able to to while standing up at the sink. OT ADL-Dressing General Eval Lower Body Dressing Ability Standby Assistance Comments OT Dressing Comments SBA , pt able to dale/doff his socks while sitting in the recliner. OT ADL-Toileting Comments OT Toileting Comments Pt states just used the toilet . OT ADL-Bathing Comments OT Bathing Comments Not performed. M5 OT- IP IADL's Start: 10/16/19 18:16 Freq: Status: Active Protocol: Document 10/16/19 16:10 [facility] (Rec: 10/16/19 18:46 [facility] [id number]) OT-Instrumental Activities of Daily Living Home Safety Awareness Ability to Problem Solve Emergency Able to Problem Solve Situations Medication Management Medication Management Comments Pt states does his own medications but not able to recall to the physician what supplements that he takes. Money Management Money Management Comments Pt states writes his own check . Meal Preparation Meal Preparation Comments Pt states does not eat much. B2B Appointment Setter B2B Appointment Setter Comments Pt states has been asking daughter and grandson to assist for IADl and yard work. M6 OT- IP Functional Cognition Start: 10/16/19 18:16 Freq: Status: Active Protocol: Document 10/16/19 16:10 [facility] (Rec: 10/16/19 18:46 [facility] [id number]) Cognitive Factors Limiting Selfcare Function Cognitive Ability Level of Alertness Alert Patient Orientation Name,Place,Situation Attention Span Ability Capable of Focused Attention, Capable of Sustained Attention Ability to Follow Commands Able to Follow One Step Commands Memory Description Short Term Impaired Safety Awareness Underestimates Need for Assistance Problem Solving Ability Needs Assist to Identify Solutions Executive Function Ability Unable to Organize Plans, Unable to Remember Details Cognitive Tests SLUMS Pt scored 15/30 , normal score for pt's level of education is 27/30. Pt not able to do two digit math calculation, able to recall 11 animals in one minute, unable to state 4 digit number backwards, unable to draw the hands on the clock correctly after time given, unable to recall any of the 5 objects after time passed, and only able to answer 2/4 questions after paragraph read. Pt insist that he has not slept well and had anything to eat as he is NPO. Cognitive Comments Cognitive Assessment Comments Pt note able to recall details from what the hospitalist just finished talking to his about taking iron and have his blood level checked more often. Pt's SLUMS score implies cognitive deficits. OT- Vision and Hearing OT- Hearing Assessment OT- Hearing Assessment WFL OT- Vision Assessment Visual Acuity Glasses For Reading M7 OT- IP Mobility and Balance Start: 10/16/19 18:16 Freq: Status: Active Protocol: Document 10/16/19 16:10 [facility] (Rec: 10/16/19 18:46 [facility] [id number]) OT-Transfer Assessment Sit to and From Stand Sit to and from Stand Standby Assistance Transfers Transfer Ability Standby Assistance Technique Transfer Destination Bed Transfer Technique Stand Step Pivot Devices Transfer Assistive Devices Gait Belt,Straight Cane Comments Mobility Comments Pt able to use cane with SPC , had one loss of balance but able to catch himself. OT- Balance Assessment Sitting Balance and Reactions Static Sitting Balance Ability Normal Dynamic Sitting Balance Ability Normal Standing Balance and Reactions Static Standing Balance Ability Good M8 OT- IP Objective Assessments Start: 10/16/19 18:16 Freq: Status: Active Protocol: Document 10/16/19 16:10 [facility] (Rec: 10/16/19 18:46 [facility] [id number]) OT Gross Range of Motion Upper Extremity Range of Motion Assessment Within Functional Limits OT Strength Comments Strength Comments 4-/5 fro BUE OT- Coordination Assessment Comments Coordination Comments Increased time to open brush package. M9 OT- IP Assessment and Plan Start: 10/16/19 18:16 Freq: Status: Active Protocol: Document 10/16/19 16:10 [facility] (Rec: 10/16/19 18:46 [facility] [id number]) OT Summary Assessment and Plan Potential Rehabilitation Potential Good Analytic Complexity at Evaluation Low Summary OT Impairments Functional Cognition, Functional Mobility,Dressing, Toileting,Bathing,Toilet Transfers,Shower Transfers, Activity Tolerance Progress Towards Goals Slow Progress due to Cognition Assessment Summary Pt low complexity and main barrier are decreased dynamic balance and functional cognition, however his cognitive status appears to be possibly close to baseline. Pt feels that he is not thinking well due to not sleeping or having eaten solid food as has been NPO. OT to continue to assess functional cognitive status. Suggested to pt to have assist at home , and initially to have someone stay with him. Pt appears aware that he is not thinking well and states he would not drive at this time and call for assist. Goals Grooming Goal Independent Dressing Goal Independent Toileting Goal Independent Bathing Goal Independent Toilet Transfer Goal Independent Shower Transfer Goal Independent Patient/Caregiver Education Goal Demonstrate Energy Conservation and Pacing Days to Meet Goals 5 Frequency of Treatment Frequency Of Treatment Once a Day Treatment Plan OT Treatment Plan ADL Training,Functional Cognition Training,Functional Mobility,Patient/Family Education,Discharge Planning Other Treatment Recommendations and Next shower if still here and Treatment Focus reassess cognition- ACL Discharge Recommendations OT Discharge Recommendations Home with Assistance,Home Health Home Equipment Needs Shower chair Transportation Needs at Discharge Private Vehicle
[2019-10-16] MEDS: IRON SUCROSE 200 MG in SODIUM CHLORIDE 0.9% 100 ML 220 ML IV (17:02)
[2019-10-16] MEDS: POTASSIUM CHLORIDE 20 MEQ TAB 40 MEQ PO (17:02)
--- NOTE | 2019-10-16 18:22 | DIET.PN ---
Dietary Progress Note Assessment: 79y M admitted for hgb 4.2 c sx of dizziness and fatigue referred to nutrition for reported weight loss and iron deficiency anemia. Per surgeon, potential source of anemia is most likely the duodenitis and duodenal petechia. Met c pt and his adult grandson. Prior to Covid-19 pandemic, pt would eat out every Friday c family at restaurant. Grandson says pt's weight has been slowly declining over past 2 y. Per pt, his clothes have been fitting looser over past few months and his usual body weight is 150#, pt's grandson agrees with this. Pt states he takes vitamin C daily but avoids iron because he thought it was bad for elderly men to consume iron. Usual Day: B: oatmeal c milk and toast L: turkey sandwich D: rotisserie chicken piece c rice and fruit cocktail Pt stated several times he can't really remember what he eats and seemed a bit perplexed during conversation. Pt stated he does not eat ketchup and other sauces because they are high in sodium and he heard that isn't good to eat too much of. Besides occasional raisins, clam chowder, and shrimp, pt's diet overall low in dietary iron. Pt avoids beef and beans. HT: 170.1cm WT: 58.5 (-5.7% in 3 mo, severe; -14% in 2y) UBW: 68.1kg BMI: 20.2 (severe for age) Labs: hgb 4.2 LL on admit, Hct 18.8 LL, Iron 16 L, Ferritin 6 L, Na 132 L, BUN 22 H, eGFR 57.7 L Nutrition Diagnosis: Severe Acute on Chronic PCM aeb 5.7% unintentional wt loss in 3 mo (severe), BMI 20.2 (severe for age), iron deficiency anemia c admit hgb 4.2 L, moderate subcutaneous fat wasting in temples, clavicle, tibia. Interventions: To support PCM recc Ensure Enlive daily on d/c to support PRO and KCAL intake. Provided pt and family handout on iron containing foods with suggestions and tips to increase absorption. Diet Order: general EER: 2,000 kcal (35kcal/kg per pcm), 75g PRO (1.3g/kg per pcm) Monitoring/Evaluations: following labs
--- NOTE | 2019-10-16 18:57 | PC.NURSE ---
Addendum entered by Daniella Damon R.N. 10/16/19 20:30: Per Dr. Fraser's verbal order, may leave iv out and discontinue telemetry if pt wishes to be DNR. Pt is now DNR per Dr. Fraser's order. Tele and iv dc'd. Original Note: Noted pt's left forearm iv has infiltrated following iron infusion. Slight edema proximally with dark discoloration. Able to draw blood from iv catheter, but pt reports tremendous pain with flush and so this was not pursued. Dr. Fraser informed. Per Dr. Fraser, pt was questioned re code status. Pt is quick to respond does not want to be resuscitated if heart should stop. Pt's grandson is in room and agrees with this directive by pt. Dr. Fraser informed pt was challenging iv start last evening requiring several nurses with several attempts each.
--- NOTE | 2019-10-16 19:16 | PC.NURSE ---
Patient pleasant and cooperative with staff. D/C peripheral IV in patient's left FA this shift d/t infiltration MD aware. Plan is to D/C patient tomorrow. New diet order high calorie, regular/thin, patient tolerated well. Patient stated DNR status. Patient bradycardic at baseline with HR in 40s, but asymptomatic and stable. Ambulates in hallway with SBA x2 this shift with FWW and gaitbelt. Denies pain. +2 edema noted to bilateral ankles and feet, patient states new onset within last two weeks. Currently in bed visiting with his grandson, kylieils x2, bed low, call light within reach.
[2019-10-16] MEDS: SIMVASTATIN 20 MG TABLET PO (21:23)
[2019-10-17] VITALS (13 sets, daily range): BP systolic 101–129; BP diastolic 41–60; PULSE 58–73; RESP 14–19; TEMP 36.6–37.3; O2SAT 94–99
[2019-10-17] MEDS: PANTOPRAZOLE 40 MG TABLET PO (06:01)
[2019-10-17 06:16] LABS: BUN Creatinine Ratio 15.5 (6-22); Blood Urea Nitrogen 15 mg/dL (9-20); Calcium 8.5 mg/dL (8.4-10.2); Carbon Dioxide 21 mmol/L (22-32); Chloride 109 mmol/L (98-107); Estimated Glomerular Filt Rate > 60.0 mL/min (>60); Glucose 76 mg/dL (80-110); HEMOLYSIS < 15 (0-50); Potassium 4.2 mmol/L (3.4-5.1); Sodium 133 mmol/L (137-145)
[2019-10-17 06:18] LABS: Basophils Absolute Auto 100 /uL (0-100); Basophils Percent Auto 0.9 % (0-2); Eosinophils Absolute Auto 300 /uL (0-450); Eosinophils Percent Auto 3.4 % (2-4); Hematocrit 24.1 % (41-53); Hemoglobin 7.4 g/dL (13.5-17.5); Lymphocytes Absolute Auto 1000 /uL (1100-4500); Lymphocytes Percent Auto 11.5 % (25-40); Mean Corpuscular HGB Conc 30.6 % (30-36); Mean Corpuscular Hemoglobin 22.7 PG (26-34); Mean Corpuscular Volume 74.4 fL (80-100); Monocytes Absolute Auto 700 /uL (0-900); Monocytes Percent Auto 7.9 % (3-14); Neutrophils Absolute Auto 6300 /uL (1500-7000); Neutrophils Percent Auto 76.3 % (50-75); Platelet Count 170 X10^3/uL (150-400); Red Blood Cell Count 3.24 X10^6/uL (4.5-5.9); Red Cell Distribution Width 26.7 % (11.6-14.8); White Blood Cell Count 8.3 X10^3/uL (4.5-11.0)
[2019-10-17 06:19] LABS: Add Manual Diff / Slide Review SLIDE REVIEW
[2019-10-17 07:02] LABS: Dimorphic RBC 2
--- NOTE | 2019-10-17 08:49 | PM.DS.1 ---
History of Present Illness History of Present Illness Chief complaint: low hemoglobin/blood trans. Narrative: Written by myself Dr. Fraser: Lalit Wright is an 79-year-old male with a past medical history significant for hypertension, hyperlipidemia, and colon polyps who presented to the ED at the instruction of his PCP for severe and mildly symptomatic anemia. The patient is a very poor historian and likely has mild cognitive impairment versus mild dementia. The patient reports that he has had increasing fatigue and weakness likely over the last several weeks but especially over the last several days. The patient was found to be severely anemic with a hemoglobin of 4.1 in PCP outpatient clinic and he was instructed to go to the emergency department. He has no history of anemia as far as he knows with the last documented hemoglobin and hematocrit was 15.7 and 47.5, respectively in 2014. He takes a baby aspirin daily. He denies any other NSAID use. He denies hemoptysis, hematuria, hematochezia or melena. Stool guaiac negative in ED. He denies any shortness of breath, lightheadedness or dizziness, presyncope or syncopal episodes, palpitations or chest pain. The patient has a history of colon polyps and reports that he is likely overdue for colonoscopy but was not going to obtain due to his age and previous discussion with PCP. He has a family history of a mother that of metastatic colon cancer. Patient endorses unintentional weight loss of unknown amount but has noticed his clothes do not fit well and he has changed stool pattern with intermittent small caliber of stool. He denies night sweats or abdominal pain. Plan for observation and workup of anemia which is likely related to GI source. PCP Dr. Davis Discharge Providers Provider Date of admission: 10/14/19 16:05 Discharge Date: 10/17/19 Primary care physician: Aj Davis MD Consults: 10/15/19 14:21 Consult to Occupational Therapy Evaluate & Treat Comment: [facility] Physician Instructions: Evaluate and treat Consult to Physical Therapy Evaluate & Treat Comment: Physician Instructions: Evaluate and Treat 10/15/19 14:53 Consult to Dietitian, Adult Routine Comment: Reason For Exam: PCM, BMI 20 Discharge provider: Rosalind Fraser DO Summary Hospital Course Discharge Diagnosis: 1. Symptomatic severe microcytic iron deficiency anemia, secondary to GI bleed, unclear acuity but likely indolent and chronic, present on admission. Active. 2. Yung's esophagitis, gastritis and duodenitis, chronic, present on admission. Stable. 3. Severe acute on chronic protein calorie malnutrition, present on admission. Stable. 4. Hypertension, chronic, present on admission. Stable. 5. Hyperlipidemia, chronic, present on admission. Stable. 6. 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 Stable. 7. Mild dementia without behavioral disturbance, chronic, present on admission. Stable. Hospital Course: Lalit Wright is an 79-year-old male with a past medical history significant for hypertension, hyperlipidemia, chronic low back pain with left-sided radiculopathy/neuropathy and opiate dependence and colon polyps who presented to the ED at the instruction of his PCP for severe symptomatic anemia. 1. Symptomatic severe microcytic iron deficiency anemia, secondary to GI bleed, unclear acuity but likely indolent and chronic, present on admission. Active. -Patient presented with mild fatigue and weakness over several weeks but especially over last 3 days. Patient endorses change in stool pattern with intermittent small caliber stools. Patient has history of colon polyps and is overdue for colonoscopy. Significant family history of mother who had metastatic colon cancer. -Initial hemoglobin 4.1 with MCV 64.3. Received 6 units PRBC total. Hemoglobin now 10.6. Transfusion goal hemoglobin < 7.0. Continued to monitor H&H closely. -Stool guaiac negative in ED. -Ordered anemia workup including: Iron profile with saturation and ferritin which demonstrated iron deficiency anemia, reticulocyte count high normal at 2.6%, B12 mildly low at 231 and folate normal at 13.9. Received venofer 200 mg IV x 1 and started and continued ferrous gluconate 324 mg daily with bowel regimen, Colace 100 mg twice daily and MiraLax 17 g daily, to avoid iron induced constipation. Recommended GI referral for pill endoscopy and hematology referral for further hematological evaluation for possible blood cell dyscrasia of which the patient declined and would just -Continued Protonix 40 mg PO daily. Discontinued aspirin and recommended no NSAIDs. -Consulted general surgery, Dr. Ramirez, who performed EGD which demonstrated duodenal petechia, consistent with duodenitis, gastric petechia consistent with gastritis, raised and flat polyps in the stomach, with no active bleeding, 1-2 cm tongues of salmon-colored mucosa consistent with Yung's esophagus in the distal esophagus. Dr. Gastelum performed colonoscopy which was unrevealing and demonstrated diverticulosis. 2. Yung's esophagitis, gastritis and duodenitis, chronic, present on admission. Stable. -See workup above. -Continued Protonix 40 mg daily definitely. Discontinued aspirin and recommended no NSAIDs. 3. Severe acute on chronic protein calorie malnutrition, present on admission. Stable. -BMI 20.7. -Patient endorses unintentional weight loss of unknown amount but notes his clothes fitting more loosely. He reports since coronavirus it has been hard for him to eat well as he can no longer go get food at local restaurants/buffets and has to make all his own meals. -Consulted dietitian and we appreciate her time and recommendations. 4. Hypertension, chronic, present on admission. Stable. -Discontinued lisinopril 5 mg daily due to low normal blood pressure. 5. Hyperlipidemia, chronic, present on admission. Stable. -Continued home simvastatin 20 mg daily at bedtime. 6. 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 Stable. -Continued home oxycodone 5 mg daily as needed. -Continued physical and occupational therapy evaluation and treatment. 7. Mild dementia without behavioral disturbance, chronic, present on admission. Stable. -Patient has short and likely some long-term memory impairment. -CT/MRI brain and further dementia workup not performed per patient's wishes. -Occupational therapy performed SLUMS score +15/20 indicative of [id number] dementia. -Recommended against driving. Exam Vital Signs (past 8 hours): - 10/17/19 03:00 10/17/19 04:00 Temperature 98.8 F Pulse Rate 65 Respiratory Rate 15 Blood Pressure 101/52 L Pulse Oximetry 94 94 Oxygen Delivery Method Room Air Oxygen Flow Rate 0 Objective Labs Result Diagrams: 10/17/19 17:30 10/17/19 06:00 Labs: Laboratory Results - last 24 hr 10/14/19 10/17/19 10/17/19 14:40 06:00 06:00 WBC 8.3 RBC 3.24 L Hgb 7.4 L Hct 24.1 L MCV 74.4 L MCH 22.7 L MCHC 30.6 RDW 26.7 H Plt Count 170 Neut % (Auto) 76.3 H Lymph % (Auto) 11.5 L Bertie % (Auto) 7.9 Eos % (Auto) 3.4 Baso % (Auto) 0.9 Neut # (Auto) 6300 Lymph # (Auto) 1000 L Bertie # (Auto) 700 Eos # (Auto) 300 Baso # (Auto) 100 RBC Morphology Not Reportable Dimorphic RBCs 2 Sodium 133 L Potassium 4.2 Chloride 109 H Carbon Dioxide 21 L BUN 15 Creatinine 0.97 Estimated GFR > 60.0 BUN/Creatinine Ratio 15.5 Glucose 76 L Calcium 8.5 Crossmatch See Detail Discharge Plan Discharge Plan Patient Disposition: Home Health Service Discharge comment: You are being discharged home with home health for physical therapy, occupational therapy, nursing and rehab nursing tech. You have been prescribed Protonix 40 mg daily to help heal your esophagus, stomach and small intestine and you will need to take this for the rest of your life. Discontinue aspirin use and do not use NSAIDs such as ibuprofen (Advil or Motrin), naproxen (Aleve), etc. You have been prescribed iron supplementation with ferrous gluconate 324 mg daily. Iron may be constipating therefore recommend bowel regimen with stool softener called Colace 100 mg twice daily and MiraLax 17 g daily. Due to your memory impairment highly recommend you do not drive. Recommend further evaluation for GI bleed with a pill cam and hematological evaluation. Please follow-up with your primary care physician, Dr. Davis, regarding your hospitalization, to continue monitoring your blood counts (recommend rechecking blood counts in 1 week) and periodic transfusion if needed. Discharge orders & Medications Prescriptions: New pantoprazole 40 mg Tablet,Delayed Release (Dr/Ec) 40 mg PO 0700 Qty: 60 RF: 0 polyethylene glycol 3350 17 gram Powder In Packet 17 gm PO DAILY Qty: 30 RF: 0 docusate sodium [DOK] 100 mg Capsule 100 mg PO BID Qty: 60 RF: 0 ferrous gluconate 324 mg (38 mg iron) Tablet 324 mg PO DAILY Qty: 30 RF: 0 Continued simvastatin 20 mg tablet 20 mg PO BEDTIME RF: 0 oxycodone 5 mg tablet 5 mg PO DAILY PRN (Reason: Pain (Scale Score 7-10)) RF: 0 Discontinued lisinopril 5 mg tablet 5 mg PO DAILY RF: 0 aspirin 81 mg Tablet,Delayed Release (Dr/Ec) 81 mg PO DAILY RF: 0 Follow up/Referrals: Aj Davis MD [Primary Care Provider] - 3-5 Days Diet/Activity/Treatments Diet: Diet as Tolerated Diet comment: High-protein, high-calorie, Ensure Enlive shake daily Activity: Activity as tolerated Visit Report/Discharge Packet Instructions: DI for Gastritis, DI for Iron Deficiency Anemia-Adult, Gastrointestinal Bleeding, How to Avoid Taking NSAID-Containing Products, Iron Supplements, DI for Yung Esophagus, DI for Duodenitis, EGD Discharge Instructions Visit Report Forms: Patient Portal/API, Stroke Signs & Symptoms Discharge Data Primary Care Provider: Aj Davis Attending Provider: Rosalind Fraser Admit Date/Time: 10/14/19 16:05 Discharges patient from system. Discharge Date/Time: 10/17/19 17:47 Quality VTE Deep Vein Thrombosis/Pulmonary Embolism Present on Admission: No
--- NOTE | 2019-10-17 10:23 | CM.DPC ---
Addendum entered by Jenn Philip R.N. 10/17/19 12:10: Spoke to patient's daughterGhislaine. Discussed home health and what services that they offer. She asked if they cooked meals, or if they took patient to appointments. Let her know that they do not, but there are caregiving agencies that can provide services. Asked her if he was able to financially afford caregiving/housekeeping services, and she mentioned that the biggest concerns is her dad allowing people to come into the home. Let her know that this field case manager would leave a Senior Resources book in patient's room, for son in law is picking up patient later today. Let her know that [facility] Whe[employer] is through the [facility] in [place], and flagged the phone number in the book. Also, flagged caregiving agency information. Daughter stated. if nursing is coming into the home, that may be a great benefit for my dad, especially if he needs lab work done. Daughter is not familiar with agencies, and no preference. Was able to reach Daina at [facility]. She mentioned that nursing most likely can see patient Friday, unsure about tomorrow. Went ahead and gave her information on patient, and let her know that daughter, Ghislaine, is primary contact. Added this on face sheet as well, and faxed over referral. Placed Senior Resource book in patient's room, and let D[employer]AT MILL OPERATOR know as well. Plan is for discharge home today after transfusion, and will get home health. Faxed over face sheet, orders, face to face, DC summary, and H&P. Original Note: DCP Cont: Patient is to be discharged home today. He is completing his blood transfusion, but does not want any other procedures done. Dr. Fraser had spoken to daughterGhislaine. Home health may be feasible for patient. Nursing, P.T, O.T, as well as SURVEYOR HYDROGRAPHIC and bath aide. Mentioned Meals on Wheels, as well. This field case manager left a message with patient's daughterGhislaine to call back regarding home health agency of choice, as well as information for meals on wheels. Face to face has been signed. P: Patient is to be discharged home today with home health. Have not yet faxed agency, will discuss with daughter, patient does have some memory issues and may not be able to retain information. Jenn Philip RN/Mat Cleaning Machine Operator
--- NOTE | 2019-10-17 12:14 | PC.NURSE ---
Tolerated 1st unit of PRBC without complaint. VSS. Plan for lunch, physical therapy and 2nd unit of blood transfusion prior to discharge. Dr. Fraser ordered H&H check 30 minutes post 2nd transfusion. Continue to monitor.
[2019-10-17] MEDS: FERROUS GLUCONATE 324 MG TABLET PO (12:29)
--- NOTE | 2019-10-17 13:18 | PT.IPTN ---
Current Diagnoses Other specified anemias (10/14/19) Surgery Performed Operation Date: 10/15/19 10:00 Actual Procedures p Esophagogastroduodenoscopy with Biopsy - Loren Rico MD Operation Date: 10/16/19 09:30 Actual Procedures p Colonoscopy(Not Applicable) - Chris Gastelum MD Physical Therapy Treatment Note M2 PT-IP Current Condition Start: 10/15/19 16:02 Freq: NEEDED Status: Active Protocol: Document 10/15/19 16:02 HH (Rec: 10/15/19 16:29 HH [id number]) Physical Therapy Current Condition Current Condition Evaluation Date 10/15/19 Treatment Diagnosis severe anemia, possible GI bleed, generalized weakness Onset Date 10/14/19 Weight Bearing Status Weight Bearing Status Full Weight Bearing M3 PT-IP Subjective Start: 10/15/19 16:02 Freq: NEEDED Status: Active Protocol: Document 10/17/19 12:46 CLB (Rec: 10/17/19 14:59 CLB [id number]) Subjective Physical Therapy Visit Type Type Treatment Note Visit Start Time 12:46 Visit Stop Time 13:18 Total Visit Minutes 32 Number of COMMUNITY HEALTH NURSING DIRECTOR Visits 2 Physical Therapy Visit Comments Patient Comments Pt willing to participate with therapy. Therapy Pain Assessment Pain When Pain Assessed During Mobility Pain Present Pain Present Denied Pain M4 PT-IP Mobility and Gait Start: 10/15/19 16:02 Freq: NEEDED Status: Active Protocol: Document 10/17/19 12:46 CLB (Rec: 10/17/19 14:59 CLB [id number]) PT-Bed Mobility Assessment Supine to Sit Supine to Sit Standby Assistance Scooting Scooting to Edge of Bed Standby Assistance PT-Transfer Assessment Sit to and From Stand Sit to and from Stand Contact Guard Assistance Equipment Transfer Assistive Device Gait Belt,Front Wheeled Walker Transfers Transfer Destination Bed Transfer Ability Level of Assist Contact Guard Assistance,Use of Upper Extremities Comments Mobility Comments Pt in bed upon arrival, pt BP in supine 108/42, HR 68, BP in sitting 107/48, HR 70, BP in standing 117/52, HR 66, BP after activity in sitting 110/ 57, HR 60, BP after tx in supine 111/44, HR 60. Pt had no c/o dizziness or lightheadedness during tx. Pt ambulated with SPC requiring CGA with lateral lean and LOB. Pt required Min A for stair climbing using SPC and BOOKER. Pt then ambulated back to room. Pt trialed ambulation with FWW , pt was more stable with FWW requiring SBA, pt had no lateral lean or LOB while using FWW. Pt is refusing to use or get FWW stating he won' t use it. Pt able to get back to supine SBA. Pt performed therapeutic exercises in supine. Pt left in bed with alarm on, call light in hand and pt shown which button to push to call RN as pt stated he was confused as to which device was the remote and which one was the telephone. RN informed of pt mobility and confusion. This COMMUNITY HEALTH NURSING DIRECTOR called and spoke to pt's daughter Ghislaine, she stated that the pt has been more confused lately and that she will purchase a FWW for pt to use at home. Ghislaine was informed of pt's mobility and that pt should not be left alone at this time. Pt will required CGA if he is ambulating with SPC and Min A on stairs for safety due to weakness. Gait Assessment Gait Gait Assistance Required: Standby Assistance,Contact Guard Assist,1 Person Assist Distance (Feet) 200 Able to Maintain Weight Bearing Status Yes During Gait Assistive Devices Assistive Device Gait Belt,Straight Cane,Front Wheeled Walker Gait Deviations General Gait Pattern Decreased Stride Length, Decreased Feet Clearance, Flexed Trunk Factors Limiting Gait Function Factors Limiting Gait Function Decreased Activity Tolerance, Decreased Strength,Pain,Poor Balance Comments Gait Comments Pt requiring CGA x1 for ambulation with SPC and SBA for ambulation with FWW. Recommend pt use FWW if home alone for increased safety. Pt refusing FWW, spoke to daughter Ghislaine and daughter aware and understands his refusal and states she will purchase pt a walker for home use. Stair Climbing Assessment Evaluation Level of Assist On Stairs Minimal Assistance,1 Person Assistance Devices Stair Climbing Assistive Devices Straight Cane Technique/Endurance Stair Climbing Direction Ascend and Descend Stair Climbing Technique Step to Step Number of Steps Climbed 3 Stair Climbing Set # Repetitions (reps) 1 Comments Stair Climbing Comments Pt required Min A with stair climbing using a SPC and BOOKER as pt has no handrail on stairs. Daughter Ghislaine informed of pts need for assist on stairs. M5 PT-IP Objective Assessments Start: 10/15/19 16:02 Freq: NEEDED Status: Active Protocol: Document 10/15/19 16:02 HH (Rec: 10/15/19 16:29 [id number]) Orientation Orientation/Cognition Level of Alertness Alert Orientation Name,Age,Birthday,Month,Date, Year,Day of Week,Place, Situation Language Function Ability No Deficits Noted Safety Awareness Understands Safety Issues Memory Description No Deficits Noted Gross Range of Motion Upper Extremity ROM Assessment Within Functional Limits Lower Extremity ROM Assessment Within Functional Limits Strength Upper Extremity Strength Assessment Within Functional Limits Lower Extremity Strength Assessment Bilaterally Impaired Hip 4/5 Knee 4/5 Ankle 5/5 Coordination Assessment Gross Coordination Gross Coordination WNL Sensation Assessment Sensation Gross Sensation WNL Muscle Tone Muscle Tone WNL Yes M6 PT-IP Treatment Start: 10/15/19 16:02 Freq: NEEDED Status: Active Protocol: Document 10/17/19 12:46 CLB (Rec: 10/17/19 14:59 CLB [id number]) Physical Therapy Treatment Exercises Exercises Ankle Pumps,Quad Sets,Heel Slides Education Education Provided Safety M7 PT-IP Assessment and Plan Start: 10/15/19 16:02 Freq: NEEDED Status: Active Protocol: Document 10/17/19 12:46 CLB (Rec: 10/17/19 14:59 CLB [id number]) PT Summary Assessment and Plan Potential Rehabilitation Potential Good Status of Condition at Evaluation Evolving Summary Impairments Pain,Strength,Balance,Bed Mobility,Transfers,Gait, Activity Tolerance Progress Towards Goals Slow Progress due to Activity Tolerance Assessment Summary Pt able to ambulate ~150ft with SPC/CGA and 50 ft w/ FWW/SBA, pt requires CGA for gait with SPC and SBA when using FWW. Pt required Min A on stairs with SPC and BOOKER. Pt 's daughter Ghislaine was informed by phone that pt is unsafe at this time to be home alone and would benefit from a FWW for safety, Pt's daughter stated she would purchase a FWW for him as pt refused a walker at d/c from hospital. Pt's daughter understands pt will need increase in assist at this time until he is stronger. Goals Bed Mobility Goal Independent Transfer Goal Independent,Cane Gait Goal Independent,Cane Gait Distance 200 Other Goals climb 2 steps with SPC independently Days to Meet Goals 5 Frequency of Treatment Frequency Of Treatment Once a Day Treatment Plan Physical Therapy Treatment Plan Bed Mobility Training,Transfer Training,Gait Training, Therapeutic Exercise,Balance Retraining,Neuromuscular Re-ed Other Recommendations and Next Treatment monitor vital signs Focus check H&H gait with SPC and FWW Recommendations To Nursing Amount of Assist Needed 1 Person Assist Discharge Recommendations PT Discharge Recommendations Home with Assistance,Home Health Transportation Needs at Discharge Private Vehicle
--- NOTE | 2019-10-17 13:30 | PC.NURSE ---
Spoke with patient's daughter over the phone. Patient just finished working with physical therapy and is now starting his second unit of blood. Plan for discharge to home after H & H check resulted (post transfusions). Patient's son in law will be able to pick him up this evening.
--- NOTE | 2019-10-17 17:23 | PC.NURSE ---
Pt completed PRBC transfusion. Per H&H ordered for 1H post infusion. awaiting lab draw and than pt to DC home.
[2019-10-17 17:40] LABS: Hematocrit 33.8 % (41-53); Hemoglobin 10.6 g/dL (13.5-17.5)
== END 2019-10-17 17:47 | disposition home health service (06) | DRG 377 ==
LOC: ED 16:05 → AC 16:06
PROVIDERS: Specialist; Surgery; Admitting Provider Internal Medicine; Emergency Provider Emergency Medicine; Family Provider Internal Medicine; PCP Internal Medicine; Referring Provider Emergency Medicine; Visit Provider Internal Medicine
PROC: 0DJ08ZZ Inspection of Upper Intestinal Tract, Via Natural or Artificial Opening Endoscopic (ICD-10-PCS; CPT 43235; principal; 2019-10-15 10:00)
PROC: 0DJD8ZZ Inspection of Lower Intestinal Tract, Via Natural or Artificial Opening Endoscopic (ICD-10-PCS; CPT 45378; principal; 2019-10-16 09:30)
DX: K29.81 Duodenitis with bleeding (principal); E43 Unspecified severe protein-calorie malnutrition; K29.71 Gastritis, unspecified, with bleeding; R23.3 Spontaneous ecchymoses; K22.70 Barrett's esophagus without dysplasia; D50.0 Iron deficiency anemia secondary to blood loss (chronic); Z68.21 Body mass index [BMI] 21.0-21.9, adult; R60.0 Localized edema; I10 Essential (primary) hypertension; E78.5 Hyperlipidemia, unspecified; M54.16 Radiculopathy, lumbar region; Z11.59 Encounter for screening for other viral diseases; Z79.891 Long term (current) use of opiate analgesic
CPT/HCPCS: 36415; 36430; 80048; 80053; 82550; 82553; 82570; 82607; 82728; 82746; 82962; 83540; 83550; 83735; 84156; 84443; 84484; 85014; 85018; 85025; 85027; 85045; 85610; 85730; 86850; 86900; 86901; 87635; 93005; 97116; 97161; 97165; 97530; 99284; G0378; P9016; C9113; J1756; J2250; J3010

== ENCOUNTER → 2019-10-21 19:17 | Outpatient (ROUT) | payer MEDICARE, OTHER, SELFPAY ==
[2019-10-14 17:02] VITALS: BMI 21.1
[2019-10-21 19:24] LABS: Add Manual Diff / Slide Review NO; Basophils Absolute Auto 100 /uL (0-100); Basophils Percent Auto 1.4 % (0-2); Eosinophils Absolute Auto 300 /uL (0-450); Eosinophils Percent Auto 3.7 % (2-4); Hematocrit 34.2 % (41-53); Hemoglobin 10.7 g/dL (13.5-17.5); Lymphocytes Absolute Auto 800 /uL (1100-4500); Lymphocytes Percent Auto 12.3 % (25-40); Mean Corpuscular HGB Conc 31.3 % (30-36); Mean Corpuscular Hemoglobin 25.3 PG (26-34); Mean Corpuscular Volume 80.9 fL (80-100); Monocytes Absolute Auto 500 /uL (0-900); Monocytes Percent Auto 7.8 % (3-14); Neutrophils Absolute Auto 5100 /uL (1500-7000); Neutrophils Percent Auto 74.8 % (50-75); Platelet Count 149 X10^3/uL (150-400); Red Blood Cell Count 4.22 X10^6/uL (4.5-5.9); Red Cell Distribution Width 29.5 % (11.6-14.8); White Blood Cell Count 6.8 X10^3/uL (4.5-11.0)
[2019-10-21 19:58] LABS: Anisocytosis 3+
[2019-10-21 19:59] LABS: Hypochromasia 2+; Poikilocytosis 2+; Target Cells 1+
[2019-10-21 20:01] LABS: Microcytosis 1+
== END ==
PROVIDERS: Family Provider Internal Medicine; PCP Internal Medicine; Visit Provider Internal Medicine
DX: D64.9 Anemia, unspecified (principal)
CPT/HCPCS: 85025

== ENCOUNTER → 2019-11-25 16:36 | Outpatient (ROUT) | payer MEDICARE, OTHER, SELFPAY ==
[2019-10-14 17:02] VITALS: BMI 21.1
[2019-11-25 17:31] LABS: Add Manual Diff / Slide Review NO; Basophils Absolute Auto 100 /uL (0-100); Basophils Percent Auto 0.8 % (0-2); Eosinophils Absolute Auto 600 /uL (0-450); Eosinophils Percent Auto 7.6 % (2-4); Hematocrit 33.9 % (41-53); Lymphocytes Absolute Auto 1100 /uL (1100-4500); Mean Corpuscular HGB Conc 32.6 % (30-36); Mean Corpuscular Hemoglobin 28.4 PG (26-34); Monocytes Absolute Auto 600 /uL (0-900); Neutrophils Absolute Auto 5200 /uL (1500-7000); Neutrophils Percent Auto 68.6 % (50-75); Platelet Count 216 X10^3/uL (150-400); Red Blood Cell Count 3.89 X10^6/uL (4.5-5.9); Red Cell Distribution Width 27.2 % (11.6-14.8); White Blood Cell Count 7.6 X10^3/uL (4.5-11.0)
[2019-11-25 17:40] LABS: Alanine Aminotransferase 17 IU/L (<50); Albumin 3.8 g/dL (3.5-5.0); Albumin Globulin Ratio 1.6 (1.0-2.8); Alkaline Phosphatase 53 U/L (38-126); Aspartate Aminotransferase 28 IU/L (17-59); BUN Creatinine Ratio 31.6 (6-22); Bilirubin Total 0.4 mg/dL (0.2-1.3); Blood Urea Nitrogen 31 mg/dL (9-20); Calcium 9.3 mg/dL (8.4-10.2); Carbon Dioxide 29 mmol/L (22-32); Chloride 101 mmol/L (98-107); Estimated Glomerular Filt Rate > 60.0 mL/min (>60); Globulin 2.4 g/dL (1.7-4.1); Glucose 114 mg/dL (80-110); HEMOLYSIS < 15 (0-50); Potassium 4.7 mmol/L (3.4-5.1); Sodium 136 mmol/L (137-145); Total Protein 6.2 g/dL (6.3-8.2)
[2019-11-25 18:04] LABS: Anisocytosis 3+; Poikilocytosis 1+
[2019-11-25 18:05] LABS: Microcytosis 1+
[2019-11-25 18:13] LABS: Ferritin 14 ng/mL (18-464)
[2019-11-25 18:33] LABS: HEMOLYSIS < 15 (0-50); Iron 306 ug/dL (49-181)
[2019-11-25 18:44] LABS: Folate > 20.0 ng/mL (2.76-20.0); Percent Iron Saturation 85 % (20-50); Total Iron Binding Capacity 360 ug/dL (261-462); Transferrin 271 mg/dL (206-381)
[2019-11-26 00:42] LABS: Vitamin B12 729 pg/mL (239-931)
== END ==
PROVIDERS: Family Provider Internal Medicine; PCP Internal Medicine; Visit Provider Physician Assistant
DX: D64.9 Anemia, unspecified (principal); E78.2 Mixed hyperlipidemia; G89.4 Chronic pain syndrome; E53.8 Deficiency of other specified B group vitamins
CPT/HCPCS: 80053; 82607; 82728; 82746; 83540; 83550; 85025